=== PATIENT | female | born 1935 | race African-American/Black ===

== ENCOUNTER 2017-06-06 15:49 | Outpatient (CLI) | payer MEDICARE, MEDICAID ==
[2017-06-06 16:25] LABS: ALT (SGPT) 18 U/L (8-55); AST (SGOT) 18 U/L (5-34); Alkaline Phosphatase 102 U/L (40-150); Anion Gap 12 mmol/L (10-20); BUN (Urea Nitrogen) 23 mg/dL (9.8-20.1); Bilirubin, Total 0.2 mg/dL (0.2-1.2); Calc. Creatinine Clearance 0 mL/min (70-130); Calcium 9.8 mg/dL (7.8-10.44); Carbon Dioxide 31 mmol/L (23-31); Chloride 105 mmol/L (98-107); Estimated GFR-MDRD 39; Globulin 3.7 g/dL (2.4-3.5); Protein, Total 7.3 g/dL (6.0-8.3)
[2017-06-06 17:00] LABS: #Basophils 0.1 thou/uL (0.0-0.2); #Eosinphils 0.2 thou/uL (0.0-0.7); #Lymphocytes 2.7 thou/uL (1.20-3.40); #Monocytes 0.7 thou/uL (0.11-0.59); #Neutrophils 2.7 thou/uL (1.40-6.50); %Basophils 1.4 % (0.0-1.0); %Lymphocytes 42.1 % (21.0-51.0); Hematocrit 39.7 % (36.0-47.0); Mean Platelet Volume 7.1 fL (7.4-10.4); Red Blood Cell (RBC) Count 3.96 mill/uL (4.20-5.40); White Blood Cell (WBC) Count 6.3 thou/uL (4.8-10.8)
--- NOTE | 2017-06-06 19:12 | RAD ---
THREE VIEWS OF THE LEFT SHOULDER: 06/06/17 INDICATION: Left shoulder pain. FINDINGS: There is elevation of the left hemidiaphragm with mild left basilar atelectasis. There is mild AC garth int osteoarthrosis. IMPRESSION: Mild left AC joint osteoarthrosis. Stable to the prior exam. Stable elevation of the left hemidiaphragm. POS: [facility]
--- NOTE | 2017-06-06 19:17 | RAD ---
THREE VIEWS OF THE RIGHT SHOULDER: 06/06/17 INDICATION: Right shoulder pain. FINDINGS: There is mild osteoarthrosis of the right AC joint which is stable to a comparison dated 07/20/16. N o acute fracture or subluxation is evident. The visualized right lung is clear. IMPRESSION: Stable mild AC joint osteoarthrosis. POS: [facility]
== END 2017-06-06 15:50 | disposition home or self-care (01) ==
LOC: SCSRAD 15:49
PROVIDERS: ATTEND Internal Medicine Rheumatology
DX: M25.511 Pain in right shoulder (principal); M25.512 Pain in left shoulder; M19.011 Primary osteoarthritis, right shoulder; M19.012 Primary osteoarthritis, left shoulder
CPT/HCPCS: 36415; 80053; 82306; 85025; 85652; 86235

== ENCOUNTER 2018-06-17 10:29 | Observation (INO) | payer MEDICARE, MEDICAID ==
[2018-06-17] MEDS ORDERED: Acetaminophen 500 MG TAB ONE (11:10)
[2018-06-17 11:44] LABS: INR-International Normal Ratio 1.1; PTT 26.2 SEC (22.9-36.1); Prothrombin Time 14.1 SEC (12.0-14.7)
[2018-06-17 11:51] LABS: #Basophils 0.2 thou/uL (0.0-0.2); #Eosinphils 0.1 thou/uL (0.0-0.7); #Monocytes 0.7 thou/uL (0.11-0.59); #Neutrophils 3.3 thou/uL (1.40-6.50); %Basophils 2.6 % (0.0-1.0); %Eosinophils 2.2 % (0.0-10.0); %Lymphocytes 32.3 % (21.0-51.0); %Monocytes 11.4 % (0.0-10.0); %Neutrophils 51.5 % (42.0-75.0); Hemoglobin 13.1 g/dL (12.0-16.0); Mean Corpuscular HGB CONC 31.9 g/dL (32.0-36.0); Mean Corpuscular Hemoglobin 29.8 pg (27.0-31.0); Mean Corpuscular Volume 93.4 fL (78.0-98.0); Mean Platelet Volume 8.6 fL (7.4-10.4); Platelet Count 160 thou/uL (130-400); RBC Distribution Width 15.3 % (11.5-14.5); Red Blood Cell (RBC) Count 4.39 mill/uL (4.20-5.40); White Blood Cell (WBC) Count 6.3 thou/uL (4.8-10.8)
[2018-06-17 11:54] LABS: ALT (SGPT) 17 U/L (8-55); AST (SGOT) 17 U/L (5-34); Albumin 3.6 g/dL (3.4-4.8); Alkaline Phosphatase 86 U/L (40-150); Anion Gap 14 mmol/L (10-20); BUN (Urea Nitrogen) 16 mg/dL (9.8-20.1); Bilirubin, Total 0.2 mg/dL (0.2-1.2); CK (CPK) 95 U/L (29-168); Calc. Creatinine Clearance 0 mL/min (70-130); Carbon Dioxide 29 mmol/L (23-31); Chloride 101 mmol/L (98-107); Estimated GFR-MDRD 43; Globulin 3.4 g/dL (2.4-3.5); Glucose 203 mg/dL (83-110); Potassium 4.4 mmol/L (3.5-5.1); Sodium 140 mmol/L (136-145)
[2018-06-17 11:55] LABS: Troponin I Less than 0.010 ng/mL (< 0.028)
[2018-06-17 12:17] LABS: Bilirubin Negative (Negative); Blood, Urine Negative (Negative); Clarity Clear (Clear); Glucose, Urine (Dipstick) Negative (Negative); Leukocyte Negative (Negative); Nitrite Negative (Negative); Protein, Urine (Dipstick) Negative (Neg-Trace); Specific Gravity, Urine 1.025 (1.005-1.030); Urobilinogen 0.2 mg/dL (0.2-1.0)
[2018-06-17] MEDS ORDERED: Nitroglycerin 2% Ointment 1 INCH/1 GM Packet ONE (13:25)
--- NOTE | 2018-06-17 14:19 | CT ---
CT ANGIOGRAM OF THE THORACIC AND ABDOMINAL AORTA: HISTORY: Extremity pain. Decreased pulses. Evaluate for dissection. COMPARISON: None. TECHNIQUE: CT angiogram of the thoracic and abdominal aorta is performed in the axial plane. Three-dimensional reformatted images are submitted for interpretation. FINDINGS: CHEST CT: No mediastinal mass, lymphadenopathy, or hematoma. Heart size is within normal limits. No pericardi al effusion. There are coronary artery calcifications. Trachea and central bronchi are patent. There are patchy ground-glass opacities involving the right upper lobe, right lower lobe. No masses or consolidation in the right lung. No significant pleural fluid or pneumothorax in the right lung. There is marked elevation of the left hemidiaphragm likely due to left lower lobe atelectasis. Adequate aeration of the left upper lobe. No obvious masses or consolidation. No left-sided pleural effusion or pneumothorax. CT ABDOMEN: There is appropriate arterial phase enhancement of the liver, spleen, pancreas, and adrenal glands. No gastrohepatic, retrocrural, or periportal lymphadenopathy. Umbilical hernia containing mesenteric fat. No mesenteric mass, lymphadenopathy, free air, or free fluid. Symmetric attenuation of the psoas muscles. Limited evaluation of the alimentary canal due to the lack of oral contrast. Gastric mucosa, duodenu m, and multiple normal-caliber small bowel loops are noted. Ileocecal junction is normal. The visua lized colon demonstrates fecal material. There is evidence of diverticulosis without evidence of div erticulitis. Normal caliber appendix is identified. CT ANGIOGRAM: There is calcified plaque involving the origin of the right innominate artery, left carotid artery, a nd left subclavian artery. The ascending thoracic aorta demonstrates calcification of the proximal a ortic just superficial to the aortic valve. There is atherosclerosis of the aortic arch. Patchy ath erosclerosis of the descending thoracic aorta and abdominal aorta. There is no evidence of aneurysm or dissection with regards to the thoracic aorta. At the level of the celiac artery, there is abrupt decrease in the overall amount of enhancement involving the remainder of the abdominal aorta, aortic bifurcation, and both iliac arteries. Findings may be due to poor contrast opacification secondary to timing of bolus. There is significant atherosclerotic disease. However, there does not appear to be high-grade stenosis of the majority of the visualized aorta with the exception of the distal aort a just proximal to the bifurcation. Both visualized common iliac arteries are grossly patent. Based on the images provided, the celiac artery origin, superior mesenteric artery origin, and bilateral r enal artery origins are patent without evidence of high-grade stenosis. There are no lytic or blastic lesions in the osseous structures. There is S-shaped scoliotic curvatu re of the thoracic and lumbar spine. Marked vacuum disk phenomenon at L5-S1. There appears to be po stsurgical change with fusion throughout the majority of the lumbar spine. There is an incompletely evaluated hypodensity in the right iliac wing which has an attenuation coefficient of 1 Hounsfield un it. IMPRESSION: 1. Limited evaluation of the majority of the abdominal aorta as well as the intraabdominal arterial system due to poor timing of bolus. No gross evidence of high-grade stenosis of the majority of the aorta. If there is still concern, conventional angiography can be performed. 2. Elevation of the left hemidiaphragm. 3. Elevation of the left hemidiaphragm which is presumed to be due to left lower lobe atelectasis. 4. Diverticulosis, without evidence of diverticulitis. 5. Scoliosis of the lumbar spine. Vacuum disk phenomenon at L5-S1. Postsurgical changes are noted throughout the lumbar spine. 6. Incompletely evaluated hypodensities in the right iliac wing. POS: [facility]
[2018-06-17 16:16] VITALS: BMI 29.2
[2018-06-17] MEDS ORDERED: Ondansetron ODT 4 MG TAB SL PRN (16:20)
[2018-06-17] MEDS ORDERED: Acetaminophen 325 MG TAB PO PRN ×2 (16:20→16:37)
[2018-06-17] MEDS ORDERED: HYDROcodone/Acetaminophen 5/325 mg Tablet PO PRN ×4 (16:20→16:37)
[2018-06-17] MEDS ORDERED: Ondansetron HCl/PF 4 MG/2 ML Vial IVP PRN (16:20)
[2018-06-17] MEDS ORDERED: Acetaminophen 650 MG Suppository PR PRN (16:37)
[2018-06-17] MEDS ORDERED: Enoxaparin Sodium 30 MG/0.3 ML SYRINGE SC SCH (16:37)
--- NOTE | 2018-06-17 17:53 | HP ---
PRIMARY CARE PHYSICIAN: Nabil Montalvo M.D. DATE OF ADMISSION: 06/17/2018 TIME OF SERVICE: 16:45. CHIEF COMPLAINT: Left shoulder and right leg pain. HISTORY OF PRESENT ILLNESS: Ms. Perez is an 83-year-old -F[place]ian female with multiple medi simone problems including diabetes, hypertension, anxiety, peripheral vascular disease, and glaucoma. S he presented to the emergency department today after she woke up complaining of left upper arm pain f rom the shoulder to the mid humerus area that she normally does not have but has had in the past. Sh ned was also moving her right leg extremely slowly. She does have a history of having a stent to that leg back in November of this year. Her daughter was concerned and had her brought to the emergency depa rtment. There they gave her four baby aspirin and they worked up for acute coronary syndrome. About 30 minut es after getting the aspirin, she was able to move her right leg freely. They surmised that there mu st be a blood flow problem and so they were transferred here for further workup and evaluation. Susan ent has no chest discomfort, no palpitations. She felt a little short of breath earlier this morning , but has not had any since then. No PND or orthopnea. She has had some increased right lower extremity swelling asymmetrically. She took some Lasix that s he gotten from her tools administrator, Dr. Mendez before and that they have gone down significantly. The daughter also relates the patient has been wheezing recently, but has been better since the Lasix as well. No fevers or chills. No cough or sputum production. No nausea, vomiting, diarrhea, const ipation, no other current complaints. The patient did have a fall one week ago. She was seen in the emergency department, had x-rays done that showed no evidence of any fractures. She fell onto her right side. PAST MEDICAL HISTORY: 1. Hypertension. 2. Diabetes mellitus type 2, controlled. 3. Hypertension, essential. 4. Glaucoma. 5. Peripheral vascular disease. 6. Carotid vascular disease. 7. Anxiety. PAST SURGICAL HISTORY: Includes right carotid stent in June 2017, right leg stent November 2017, ri ght total hip replacement several years ago. HOME MEDICATIONS: 1. Xanax 0.25 mg p.o. b.i.d. 2. Aspirin 81 mg daily. 3. Atorvastatin 20 mg p.o. at bedtime. 4. Gabapentin 300 mg p.o. daily. 5. Lisinopril 20 mg daily. 6. Plavix 75 mg daily. 7. Potassium chloride 20 mEq daily. 8. Acarbose 100 mg t.i.d. 9. Coenzyme Q10 100 mg daily. 10. Glipizide 5 mg p.o. b.i.d. before meals. 11. Glucosamine/chondroitin 500/400 one capsule once a day. 12. Hydroxychloroquine 200 mg p.o. b.i.d. 13. Isosorbide mononitrate 60 mg once a day. 14. NovoLog 24 units subcu, there is no specified time. 15. Sertraline 100 mg p.o. daily. 16. Verapamil 180 mg 24-hour release. 17. Vitamin D3 2000 units daily. ALLERGIES: CODEINE. FAMILY HISTORY: Negative for clotting or bleeding disorders, no immune dysfunction, no premature cor onary artery disease. SOCIAL HISTORY: Negative for alcohol or drugs. She does occasionally smoke a cigarette during the d ay and has smoked for about 30 years. REVIEW OF SYSTEMS: All systems reviewed and negative except as stated as per HPI. PHYSICAL EXAMINATION: VITAL SIGNS: Temperature on arrival here is 97.6, pulse 62, blood pressure 135/68, respiratory rate 18, satting 95% on room air. GENERAL: She is awake. She is alert. She is oriented x3. She is an age appropriate appearing Afri can Fijian female, appears to be in no acute distress. She is pleasant and cooperative. HEENT: Normocephalic, atraumatic. Pupils equal, round, and reactive to light bilaterally. Mucous m embranes are moist. Lips are dry. NECK: Supple. There is no lymphadenopathy, JVD, or thyromegaly. She has normal carotid upstrokes. I do not appreciate bruits. Mucous membranes are moist. There are no visible lesions or thrush. LUNGS: Clear to auscultation bilaterally. She has good air movement. Symmetrical chest excursion. There are no wheezes, no rales, no rhonchi. CARDIOVASCULAR: She has normal S1 and S2. No S3 or S4. She has a regular rhythm and a normal rate. She does have a 2/6 systolic ejection murmur best heard at the apex. It does not radiate. ABDOMEN: Soft, it is nontender, slightly obese. She has no rebound, rigidity or guarding. She has normoactive bowel sounds present in all 4 quadrants. EXTREMITIES: No cyanosis. No clubbing. She has got trace pedal edema on the right more than the le ft. She has no pitting edema. MUSCULOSKELETAL: Normal to inspection. Large joints appear normal. She has adequate range of motio n. There is no evidence of palpable effusions or inflammation. NEUROLOGIC: Cranial nerves II-XII are grossly intact. She has no focal neurologic deficits and has a 4/5-5/5 strength in all 4 extremities and symmetrical. She has no focal deficits. Normal speech. LABORATORY DATA: CBC showed a white count of 6.3, hemoglobin 13.1, hematocrit 41.0, platelet count w as 160,000 with a normal differential. She has a slight monocytosis. Her chemistry showed a sodium 140, potassium 4.4, chloride 101, bicarbonate 29, BUN 16, creatinine 1.42, which is at her baseline w ith a GFR around 43. Glucose was 203 with calcium of 10.0. Lactic acid was normal at 1.8. Her live r functions were completely within normal limits. CK-MB was normal at 1.0 and troponin I was undetectable less than 0.010. Urinalysis was completely w ithin normal limits. ASSESSMENT AND PLAN: 1. Left shoulder pain. The patient has had multiple vascular risk factors of hypertension and diabe leandra. We will check morning fasting lipid profile. Get serial cardiac biomarkers. We will continue home medication including aspirin and Plavix. We will reevaluate. Watch on telemetry monitoring ove rnight. 2. Right lower extremity pain: The patient has no pain, feeling much better after the aspirin earlier today. Probably, this is arthritis. She has no evidence of any inflammation or edema at th is point. 3. Hypertension, continue home medications. 4. Diabetes mellitus type 2, continue home medications and diabetic diet. We will place her on low dose insulin sliding scale. We will try to clarify her insulin dosing from home. 5. Glaucoma. Continue home eyedrops. 6. Anxiety. We will continue Xanax. The patient will be placed in observation tonight and will get PT/OT evaluation for possible rehab pl acement.
[2018-06-17] MEDS: Sodium Chloride 0.9% 1,000 ML IV SCH (18:15)
[2018-06-18] MEDS ORDERED: Lisinopril/Hydrochlorothiazide 20/25 mg Tablet PO SCH (09:45)
[2018-06-18] MEDS: Sodium Chloride 0.9% 1,000 ML IV SCH (10:01)
[2018-06-18 11:30] LABS: Troponin I Less than 0.010 ng/mL (< 0.028)
[2018-06-18 11:59] VITALS: BP 166/74; TEMP 97.8
[2018-06-18] MEDS ORDERED: ACARBOSE 100 MG PO SCH (12:00)
--- NOTE | 2018-06-18 12:36 | DIS ---
DATE OF ADMISSION: 06/17/2018 DATE OF DISCHARGE: 06/18/2018 DISCHARGE DIAGNOSES: 1. Left shoulder pain, likely musculoskeletal, stable. 2. Right lower extremity pain secondary to arthritis with questionable component of peripheral vascular disease. 3. Peripheral vascular disease, chronic and stable. 4. Hypertension, stable. 5. Diabetes mellitus type 2, insulin requiring. 6. Deconditioning. CONSULTATIONS: None. PERTINENT LABORATORY AND X-RAY FINDINGS: Creatinine 1.42. Estimated GFR of 43 , lactic acid level 1.8, calcium 10.0. LFTs within normal limits. Troponin I negative x2. CBC showed a white blood cell count of 6.3, hemoglobin 13, hematocrit 41, platelet count 160 with 52% neutrophils. Urinalysis negative. Blood cultures x2 dated 06/17/[address] of the chest with dissection protocol dated 06/17/2018 showed no gross evidence of high grade stenosis of the majority of the aorta. Limited exam due to timing of contrast. Chronic changes noted. Please see dictated report for full details. HOSPITAL COURSE: Patient was observed after presenting with left shoulder and right lower extremity pain. The patient underwent extensive evaluation including metabolic screening, CT imaging of the chest as well as telemetry monitoring with his workup essentially negative and unrevealing. The patient did receive aspirin 324 mg and was resumed on her regular outpatient medication regimen to include Plavix 75 mg daily. The patient's presentation likely multifactorial given osteoarthritis, deconditioning, and history of peripheral vascular disease. The patient was evaluated by Physical Therapy with recommendations to continue home physical therapy with home health services after discharge. Telemetry monitoring shows sinus mechanism without evidence of acute arrhythmia or dysrhythmia. The patient overall clinically stable throughout the hospital course, tolerating regular oral intake, and voiding appropriately. I have examined the patient at the time of discharge and discussed followup instructions with the patient and her daughter. Family verbalized understanding and in agreement and ready for discharge on 06/18/2018. DISCHARGE MEDICATIONS: 1. Acarbose 100 mg p.o. t.i.d. 2. Xanax 0.25 mg p.o. b.i.d. 3. Enteric-coated aspirin 81 mg p.o. daily. 4. Lipitor 20 mg p.o. at bedtime. 5. Simbrinza 1%/0.2% ophthalmic suspension 1 drop to left eye b.i.d. 6. Vitamin D3 2000 units p.o. daily. 7. Plavix 75 mg p.o. daily. 8. Gabapentin 300 mg p.o. daily. 9. Glipizide 5 mg p.o. b.i.d. 10. Glucosamine 1 tablet p.o. daily. 11. Hydroxychloroquine sulfate 200 mg p.o. b.i.d. 12. Imdur 60 mg p.o. daily. 13. Latanoprost 0.05% 1 drop to left eye daily. 14. Levemir 34 units subcutaneously at bedtime. 15. Lisinopril/HCTZ 20/25 mg 1 tab p.o. daily. 16. Potassium chloride 20 mEq p.o. daily. 17. Zoloft 100 mg p.o. daily. 18. Timolol maleate 1 drop to left eye b.i.d. 19. Coenzyme Q10 100 mg p.o. daily. 20. Verapamil extended release 180 mg p.o. daily. FOLLOWUP: The patient to follow up with Dr. Nabil Montalvo within 7 days of discharge. The patient will follow up with Dr. Mendez and to call his office for appointment time and date. CONDITION ON DISCHARGE: Stable. ACTIVITY: Ad chayo. Rolling walker for ambulation. SPECIAL INSTRUCTIONS: Resume home health services including physical therapy 3 times per week. DIET: ADA and heart healthy. CODE STATUS: Full. DISPOSITION: Home with [facility], 06/18/2018. TONYA
[2018-06-18 14:18] LABS: Troponin I Less than 0.010 ng/mL (< 0.028)
[2018-06-18] MEDS ORDERED: Timolol 0.5% Ophth Soln 5 ml Bottle L EYE SCH (21:00)
[2018-06-18] MEDS ORDERED: Hydroxychloroquine Sulfate 200 MG TAB PO SCH (21:00)
[2018-06-18] MEDS ORDERED: Atorvastatin Calcium 20 MG TAB PO SCH (21:00)
[2018-06-18] MEDS ORDERED: INSULIN DETEMIR SC SCH (21:00)
[2018-06-18] MEDS ORDERED: Brinzolamide 1% Ophth Soln 10 ml Bottle L EYE SCH (21:00)
[2018-06-18] MEDS ORDERED: Non-Formulary Item 1 EACH (Brinzolamide/Brimonidine Tart [Simbrinza 1%/0.2% Ophth Susp] 1 L EYE SCH (21:00)
[2018-06-18] MEDS ORDERED: Brimonidine Tartrate 0.2% Ophth Soln 5 ml Bottle L EYE SCH (21:00)
[2018-06-18] MEDS ORDERED: ALPRAZolam 0.25 MG TAB PO SCH (21:00)
[2018-06-18] MEDS ORDERED: glipiZIDE 5 MG TAB PO SCH (21:00)
[2018-06-18] MEDS ORDERED: Insulin Glargine 34 UNITS in Pre-Filled Syringe 1 EACH SC SCH (21:00)
[2018-06-19] MEDS ORDERED: Gabapentin 300 MG CAP PO SCH (09:00)
[2018-06-19] MEDS ORDERED: Clopidogrel Bisulfate 75 MG TAB PO SCH (09:00)
[2018-06-19] MEDS ORDERED: Potassium Chloride 20 MEQ TAB PO SCH (09:00)
[2018-06-19] MEDS ORDERED: Ubidecarenone 50 MG CAP PO SCH (09:00)
[2018-06-19] MEDS ORDERED: Latanoprost 0.005% Ophth Soln 2.5 ml Bottle L EYE SCH (09:00)
[2018-06-19] MEDS ORDERED: Non-Formulary Item 1 EACH (Cholecalciferol (Vitamin D3) [Vitamin D3] 2,000 UNIT) PO SCH (09:00)
[2018-06-19] MEDS ORDERED: Lisinopril/Hydrochlorothiazide 20/25 mg Tablet PO SCH (09:00)
== END 2018-06-18 13:53 | disposition home or self-care (01) ==
LOC: SCSER 10:29 → 2NO 16:00
PROVIDERS: ADMIT Internal Medicine; ATTEND Internal Medicine
DX: M25.512 Pain in left shoulder (principal); M19.90 Unspecified osteoarthritis, unspecified site; I73.9 Peripheral vascular disease, unspecified; I10 Essential (primary) hypertension; E11.9 Type 2 diabetes mellitus without complications; Z79.02 Long term (current) use of antithrombotics/antiplatelets; Z79.899 Other long term (current) drug therapy; Z79.4 Long term (current) use of insulin; Z88.5 Allergy status to narcotic agent
CPT/HCPCS: 51701; 71275; 80053; 81003; 82550; 82553; 82962 ×2; 83605; 84484 ×3; 85025; 85610; 85730; 87040; 87086; 90662; 93005; 96372; 97139; 97530 ×2; 99285; G0008; G0378; G8978; G8979; G8987; G8988; 36415; 36416; 90471; A4353; J1650

== ENCOUNTER 2018-06-19 09:53 | Observation (INO) | payer MEDICARE, MEDICAID ==
[2018-06-19 10:56] LABS: #Basophils 0.1 thou/uL (0.0-0.2); #Eosinphils 0.1 thou/uL (0.0-0.7); #Lymphocytes 0.6 thou/uL (1.20-3.40); #Monocytes 0.6 thou/uL (0.11-0.59); #Neutrophils 4.6 thou/uL (1.40-6.50); %Basophils 0.9 % (0.0-1.0); %Lymphocytes 9.4 % (21.0-51.0); %Monocytes 9.8 % (0.0-10.0); %Neutrophils 77.9 % (42.0-75.0); Hemoglobin 12.5 g/dL (12.0-16.0); Mean Corpuscular HGB CONC 31.6 g/dL (32.0-36.0); Mean Corpuscular Hemoglobin 29.5 pg (27.0-31.0); Mean Corpuscular Volume 93.3 fL (78.0-98.0); Mean Platelet Volume 7.2 fL (7.4-10.4); Platelet Count 142 thou/uL (130-400); RBC Distribution Width 15.2 % (11.5-14.5); Red Blood Cell (RBC) Count 4.25 mill/uL (4.20-5.40); White Blood Cell (WBC) Count 5.9 thou/uL (4.8-10.8)
[2018-06-19 11:06] LABS: ALT (SGPT) 14 U/L (8-55); AST (SGOT) 15 U/L (5-34); Albumin 3.5 g/dL (3.4-4.8); Alkaline Phosphatase 76 U/L (40-150); Anion Gap 13 mmol/L (10-20); BUN (Urea Nitrogen) 12 mg/dL (9.8-20.1); Bilirubin, Total 0.2 mg/dL (0.2-1.2); Calc. Creatinine Clearance 0 mL/min (70-130); Calcium 9.4 mg/dL (7.8-10.44); Carbon Dioxide 28 mmol/L (23-31); Chloride 102 mmol/L (98-107); Estimated GFR-MDRD 48; Globulin 3.4 g/dL (2.4-3.5); Glucose 186 mg/dL (83-110); Potassium 3.8 mmol/L (3.5-5.1); Protein, Total 6.9 g/dL (6.0-8.3); Sodium 139 mmol/L (136-145)
[2018-06-19 11:09] LABS: CKMB 0.9 ng/mL (0-6.6)
[2018-06-19 11:51] LABS: Bilirubin Negative (Negative); Blood, Urine Trace (Negative); Clarity Slightly Cloudy (Clear); Glucose, Urine (Dipstick) Negative (Negative); Leukocyte Small (Negative); Nitrite Positive (Negative); Protein, Urine (Dipstick) Negative (Neg-Trace); Urobilinogen 0.2 mg/dL (0.2-1.0); pH, Urine 6.5 (5.0-9.0)
[2018-06-19 11:56] LABS: Bacteria/HPF 4+ HPF (None Seen); Hyaline Casts/LPF NONE SEEN LPF (0-3 Hyaline); RBC/HPF 0-3 HPF (0-3); Squamous Epithelial 0-3 HPF (0-3); WBC/HPF 0-3 HPF (0-3)
[2018-06-19] MEDS ORDERED: cefTRIAXone\\ROCEPHIN 1 GM VIAL ONE (11:59)
--- NOTE | 2018-06-19 12:01 | RAD ---
PORTABLE CHEST: Date: 06/19/18 INDICATION: Fever. No comparison chest films; however, comparison made to a chest CT of 06/17/18. FINDINGS: There is elevated left hemidiaphragm suggesting left diaphragmatic paralysis. The prior CT demonstrat ed left basilar atelectasis associated with this elevated diaphragm. Heart size is mildly prominent with mild vascular engorgement. IMPRESSION: Elevated left hemidiaphragm with left basilar atelectasis, similar in appearance to the CT of 8. POS: [facility]
--- NOTE | 2018-06-19 12:08 | CT ---
CT HEAD WITHOUT CONTRAST: Date: 06/19/18 Multiple axial tomograms obtained through the head without IV enhancement. INDICATION: Mental status change. FINDINGS: There is ventriculomegaly, which appears slightly more prominent today than on the prior study. Mild chronic ischemic white matter change. No evidence of mass, edema, or acute infarct. Sinuses and masto ids are well aerated. IMPRESSION: Ventriculomegaly and mild chronic ischemic white matter change. Consider NPH and recommend clinical c orrelation. POS: [facility]
[2018-06-19 13:03] VITALS: BMI 26.6
[2018-06-19] MEDS ORDERED: Ondansetron PF 4 MG/2 ML Vial IVP PRN ×2 (13:36→16:59)
[2018-06-19] MEDS ORDERED: Ondansetron ODT 4 MG TAB PO PRN ×2 (13:37→16:59)
[2018-06-19] MEDS ORDERED: Acetaminophen 325 MG TAB PO PRN (13:37)
[2018-06-19] MEDS ORDERED: Piperacillin/Tazobactam 4.5 GM in Sodium Chloride 0.9% 100 ML IVPB SCH (13:45)
[2018-06-19] MEDS ORDERED: Acetaminophen 500 MG TAB PO PRN (16:59)
[2018-06-19] MEDS ORDERED: Dextrose 5% in Water 1,000 ML IV PRN (16:59)
[2018-06-19] MEDS ORDERED: Ibuprofen 200 MG TAB PO PRN (16:59)
[2018-06-19] MEDS ORDERED: Dextrose 50% Abboject 50 ML SYRINGE SLOW IVP PRN (16:59)
[2018-06-19] MEDS ORDERED: hydrALAZINE 20 MG/ML VIAL SLOW IVP PRN (16:59)
[2018-06-19] MEDS ORDERED: HumaLOG 300 UNITS/3 ML VIAL SC PRN ×2 (16:59)
[2018-06-19] MEDS ORDERED: Dextrose 50% Abboject 50 ML SYRINGE ONE (17:16)
[2018-06-19] MEDS: Sodium Chloride 0.9% 1,000 ML IV SCH (18:14)
[2018-06-19] MEDS ORDERED: BRINZOLAMIDE L EYE SCH (21:00)
[2018-06-19] MEDS ORDERED: glipiZIDE 5 MG TAB PO SCH (21:00)
[2018-06-19] MEDS ORDERED: BRIMONIDINE TART L EYE SCH (21:00)
[2018-06-19] MEDS: ALPRAZolam 0.25 MG TAB PO SCH (21:09)
[2018-06-19] MEDS: Atorvastatin Calcium 20 MG TAB PO SCH (21:09)
[2018-06-19] MEDS: Timolol 0.5% Ophth Soln 5 ml Bottle L EYE SCH (21:09)
[2018-06-19] MEDS: Famotidine 20 MG TAB PO SCH (21:10)
[2018-06-19] MEDS: Hydroxychloroquine Sulfate 200 MG TAB PO SCH (21:11)
[2018-06-19] MEDS: Gabapentin 300 MG CAP PO SCH (21:11)
--- NOTE | 2018-06-19 22:47 | HP ---
DATE OF ADMISSION: 06/19/2018 PRIMARY CARE PHYSICIAN: Nabil Montalvo M.D. CHIEF COMPLAINT: General weakness and confusion. HISTORY OF PRESENT ILLNESS: This is an 83-year-old -Thai female who presents to [facility] Emergency Department initially with family complaining of general weakness that they noted when patient attempted to stand up and go to the restroom. The patient was also noted to be confuse d regarding drinking from a water bottle and thinking that her teeth were in the water bottle. The p sathish was notably admitted to [facility] from 06/17/2018 to 06/18/2018 for nonspecific comp laints of left upper and right lower extremity pain. The patient underwent extensive evaluation incl uding cardiac rule out with negative findings. The patient was discharged home when daughter reports the patient was acting confused in the residential advisor hours of 06/19/2018. No specific history of na usea, vomiting, or diarrhea. The patient was evaluated in the emergency room and noted to have a tem perature of 100.3 degrees Fahrenheit. Screening urinalysis was suspicious for infectious process and patient received IV fluids as well as IV Rocephin and Zosyn. The patient was referred to the Hospit alist Service for further evaluation. PAST MEDICAL HISTORY: 1. Diabetes mellitus type 2. 2. Hypertension. 3. Peripheral vascular disease. 4. History of glaucoma. 5. Carotid artery disease. 6. Anxiety disorder. 7. Hyperlipidemia. PAST SURGICAL HISTORY: 1. Status post right lower extremity stent placement in 11/2017. 2. Status post right total hip arthroplasty. 3. Status post right carotid endarterectomy with stent in 06/2017. CURRENT MEDICATIONS: 1. Xanax 0.25 mg p.o. b.i.d. 2. Aspirin 81 mg p.o. daily. 3. Lipitor 20 mg p.o. at bedtime. 4. Gabapentin 300 mg p.o. daily. 5. Lisinopril 20 mg p.o. daily. 6. Plavix 75 mg p.o. daily. 7. Potassium chloride 20 mEq p.o. daily. 8. Acarbose 100 mg p.o. t.i.d. 9. Coenzyme Q10 of 100 mg p.o. daily. 10. Glipizide 5 mg p.o. b.i.d. 11. Glucosamine/chondroitin 500/400 mg 1 capsule p.o. daily. 12. Hydroxychloroquine 200 mg p.o. b.i.d. 13. Isosorbide mononitrate 60 mg p.o. daily. 14. Novolog 24 units subcutaneously. 15. Sertraline 100 mg p.o. daily. 16. Verapamil 180 mg p.o. daily. 17. Vitamin D3 of 2000 units p.o. daily. ALLERGIES: CODEINE and TRAMADOL. FAMILY HISTORY: No inheritable diseases. SOCIAL HISTORY: The patient resides with her daughter in [facility]. Note, occasional [employer] garette use. No alcohol or illicit drug use. Ambulatory with use of a rolling walker. REVIEW OF SYSTEMS: The following complete review of systems was negative, unless otherwise mentioned in the HPI or below: Constitutional: Weight loss or gain, ability to conduct usual activities. Ski n: Rash, itching. Eyes: Double vision, pain. ENT/Mouth: Nose bleeding, neck stiffness, pain, tend erness. Cardiovascular: Palpitations, dyspnea on exertion, orthopnea. Respiratory: Shortness of b reath, wheezing, cough, hemoptysis, fever or night sweats. Gastrointestinal: Poor appetite, abdomin al pain, heartburn, nausea, vomiting, constipation, or diarrhea. Genitourinary: Urgency, frequency, dysuria, nocturia. Musculoskeletal: Pain, swelling. Neurologic/Psychiatric: Anxiety, depression. Allergy/Immunologic: Skin rash, bleeding tendency. Otherwise negative except as stated per HPI. PHYSICAL EXAMINATION: VITAL SIGNS: Currently, blood pressure 111/69, pulse 74, respiratory rate 20, temperature 99.1 degre es Fahrenheit, O2 saturation 98% on room air. GENERAL APPEARANCE: This is an 83-year-old -Thai female, lethargic, in no acute distress. HEENT: Pupils are equal, round, and reactive to light and accommodation. Extraocular muscles are in tact. No scleral icterus, no conjunctival injection. Nares patent. OP is clear. Oral mucosa dry a ppearing. NECK: Supple, no cervical adenopathy, no thyromegaly, no carotid bruits, no JVD appreciated. Cervic al spine with full active and passive range of motion. No meningeal signs noted. CHEST: Lungs are clear to auscultation bilaterally. CARDIOVASCULAR: S1, S2, without noted murmur, rub or gallop. ABDOMEN: Rounded, soft, nontender, nondistended. Bowel sounds are positive in all four quadrants. There is no hepatosplenomegaly, no abdominal bruits, no rebound or guarding appreciated. EXTREMITIES: Warm and dry with fair turgor. No clubbing, cyanosis or asymmetric edema appreciated. Pulses palpable distally at the dorsalis pedis, posterior tibial, and popliteal arteries bilaterally . Capillary refill less than 2 seconds. NEUROLOGIC: Lethargic, minimally responsive to name. Not observed ambulatory during this exam. PERTINENT LABORATORY AND X-RAY FINDINGS: Sodium 139, potassium 3.8, chloride 102, CO2 of 28, BUN 12, creatinine 1.28, estimated GFR of 48, glucose 186. Lactic acid of 1.9, calcium 9.4. LFTs within no rmal limits. Troponin I negative x1. CBC showed a white blood cell count of 5.9, hemoglobin 12.5, h ematocrit 39.6, platelet count 142 with 78% neutrophils. Urinalysis positive for nitrite and small l eukocyte esterase with 4+ bacteria. Urine culture dated 06/17/2018 showed no growth at [address] of the brain without contrast dated 06/19/2018 showed mild chronic ischemic white matter changes, no acute process noted. Portable chest x-ray dated 06/19/2018 by my interpretation shows elevated left hemidiaphragm with left basilar atelectasis. EKG dated 06/19/2018 by my interpretation shows sinus mechanism with heart rates in the 80s. Attenuated R waves noted in the precordial leads. Left axis deviation noted. ASSESSMENT AND PLAN: 1. Urinary tract infection. The patient will be observed on the medical floor. We will continue Ro cephin 2 grams IV q.24 hours. Urine culture pending. Continue IV fluids at 75 mL per hour. 2. Acute metabolic encephalopathy. Suspect secondarily to #1. Continue general supportive manageme nt as outlined in #1 and monitor clinical response. 3. Generalized weakness. Secondarily to urinary tract infection and acute metabolic encephalopathy. 4. PT evaluation for functional assessment in the a.m. 5. Chronic kidney disease stage 3. Avoid nephrotoxic agents and contrast media. Continue IV fluids as outlined previously. Repeat creatinine in the a.m. 6. Diabetes mellitus type 2. Resume home insulin regimen once confirmed. Insulin sliding scale for reflexive coverage. ADA diet. 7. Prophylaxis. Sequential compression devices while in bed. Pepcid 20 mg p.o. b.i.d. 8. Code status is FULL. Surrogate medical decision maker is the patient's daughter.
[2018-06-20] MEDS: Sodium Chloride 0.9% 1,000 ML IV SCH ×2 (01:58→16:32)
[2018-06-20 05:06] LABS: Eosinophils 3 % (0-10); Hemoglobin 12.4 g/dL (12.0-16.0); Lymphocytes 17 % (21-51); MDiff Complete? YES; Mean Corpuscular Hemoglobin 30.5 pg (27.0-31.0); Mean Corpuscular Volume 95.3 fL (78.0-98.0); Mean Platelet Volume 7.3 fL (7.4-10.4); Monocytes 16 % (0-10); Neutrophil 64 % (42-75); PLT Morphology Comment Appears Adequate; Platelet Count 158 thou/uL (130-400); RBC Distribution Width 15.1 % (11.5-14.5); RBC Morphology Normal; Red Blood Cell (RBC) Count 4.06 mill/uL (4.20-5.40); White Blood Cell (WBC) Count 5.4 thou/uL (4.8-10.8)
[2018-06-20 05:12] LABS: Anion Gap 10 mmol/L (10-20); BUN (Urea Nitrogen) 11 mg/dL (9.8-20.1); Calc. Creatinine Clearance 51 mL/min (70-130); Calcium 8.8 mg/dL (7.8-10.44); Carbon Dioxide 27 mmol/L (23-31); Chloride 105 mmol/L (98-107); Estimated GFR-MDRD 63; Glucose 82 mg/dL (83-110); Potassium 3.6 mmol/L (3.5-5.1); Sodium 138 mmol/L (136-145)
[2018-06-20] MEDS: glipiZIDE 5 MG TAB PO SCH ×2 (08:54→16:24)
[2018-06-20] MEDS: Potassium Chloride 20 MEQ TAB PO SCH (08:54)
[2018-06-20] MEDS: ALPRAZolam 0.25 MG TAB PO SCH ×3 (08:55→21:24)
[2018-06-20] MEDS: Clopidogrel Bisulfate 75 MG TAB PO SCH (08:55)
[2018-06-20] MEDS: Saccharomyces boulardii 250 MG CAP PO SCH (08:55)
[2018-06-20] MEDS: Insulin Glargine 34 UNITS in Pre-Filled Syringe 1 EACH SC SCH (08:56)
[2018-06-20] MEDS: Gabapentin 300 MG CAP PO SCH ×3 (08:56→21:23)
[2018-06-20] MEDS: Timolol 0.5% Ophth Soln 5 ml Bottle L EYE SCH ×2 (08:57→21:23)
[2018-06-20] MEDS: Ubidecarenone 50 MG CAP PO SCH (08:58)
[2018-06-20] MEDS ORDERED: BORON PO SCH (09:00)
[2018-06-20] MEDS ORDERED: GLUCOSAM PO SCH (09:00)
[2018-06-20] MEDS ORDERED: [UNRECOGNIZED DRUG - OTHER] PO SCH (09:00)
[2018-06-20] MEDS ORDERED: MSM PO SCH (09:00)
[2018-06-20] MEDS ORDERED: cefTRIAXone\\ROCEPHIN 2 GM in Sodium Chloride 0.9% 100 ML IVPB SCH (09:00)
[2018-06-20] MEDS ORDERED: INSULIN DETEMIR SC SCH (09:00)
[2018-06-20] MEDS ORDERED: CHOND PO SCH (09:00)
[2018-06-20] MEDS: Verapamil SR 120 MG TAB PO SCH (10:03)
[2018-06-20] MEDS: Hydroxychloroquine Sulfate 200 MG TAB PO SCH ×2 (10:04→21:23)
[2018-06-20] MEDS: Latanoprost 0.005% Ophth Soln 2.5 ml Bottle L EYE SCH (10:07)
[2018-06-20] MEDS: Famotidine 20 MG TAB PO SCH ×2 (10:07→21:23)
--- NOTE | 2018-06-20 15:21 | PDOC.PN ---
- Subjective Encounter Start Date: 06/20/18 Encounter Start Time: 15:05 Subjective: f/u for UTI with Staph spp on current Rocephin. More alert, walked -: short distance with PT. Voiding regularly. Appetite improved. - Objective Resuscitation Status: Resuscitation Status FULL:Full Resuscitation MAR Reviewed: Yes Vital Signs & Weight: Vital Signs (12 hours) Temp Pulse Resp BP BP Pulse Ox 06/20/18 12:39 98.9 F 66 16 120/67 97 06/20/18 08:57 73 149/65 H 06/20/18 08:00 96 06/20/18 07:45 98.9 F 73 18 149/65 H 96 06/20/18 04:13 98.0 F 73 16 146/75 H 95 Weight Weight 165 lb 5.547 oz I&O: 06/19/18 06/20/18 06/21/18 06:59 06:59 06:59 Intake Total 1219 Output Total 250 Balance 969 Result Diagrams: 06/20/18 03:47 06/20/18 03:47 Additional Labs: Accuchecks 06/20/18 06/20/18 06/19/18 11:16 05:09 21:08 POC Glucose 240 H 79 265 H 06/19/18 06/19/18 18:24 17:14 POC Glucose 230 H 44 L* Microbiology 06/19/18 11:30 Urine Straight Catheter Urine Culture - Preliminary Coagulase Neg Staphylococcus 06/19/18 11:15 Venous blood - Left Arm Blood Culture - Preliminary Specimen has been received and culture in progress. No Growth to date. 06/19/18 10:42 Venous blood - Left Arm Blood Culture - Preliminary Specimen has been received and culture in progress. No Growth to date. Phys Exam - Physical Examination Constitutional: NAD HEENT: PERRLA, sclera anicteric, oral pharynx no lesions Neck: no nodes, no JVD, supple, full ROM Respiratory: no wheezing, no rales, no rhonchi, clear to auscultation bilateral S1, S2 Cardiovascular: RRR, no significant murmur, no rub, gallop Gastrointestinal: soft, non-tender, no distention, positive bowel sounds Musculoskeletal: no edema, pulses present Neurological: normal sensation, moves all 4 limbs Psychiatric: A&O x 3 Skin: normal turgor, cap refill <2 seconds Dx/Plan (1) UTI (urinary tract infection) Status: Acute Qualifiers: Urinary tract infection type: acute cystitis Comment: Staph spp initially, Rocephin currently, transition to Levquin 500mg daily (2) Acute metabolic encephalopathy Code(s): G93.41 - METABOLIC ENCEPHALOPATHY Status: Acute Comment: Improved, likely due to #1 (3) Generalized weakness Code(s): R53.1 - WEAKNESS Status: Acute Comment: Secondary to #1, PT for mobilization, home PT after d/c (4) CKD (chronic kidney disease), stage III Code(s): N18.3 - CHRONIC KIDNEY DISEASE, STAGE 3 (MODERATE) Status: Chronic Comment: Stable, avoid nephrotoxic meds and limit contrast exposure - Plan plan discussed w/ family, continue antibiotics, PT/OT, social media content manager, out of bed/ambulate, DVT proph w/SCDs Stable overall -: D/C Rocephin -: Start Levaquin 500mg po daily -: OOB with PT -: Continue IVF's another 24h * Likely home in am
[2018-06-20] MEDS: Atorvastatin Calcium 20 MG TAB PO SCH (21:23)
[2018-06-21] MEDS: Sodium Chloride 0.9% 1,000 ML IV SCH (05:08)
[2018-06-21] MEDS: Verapamil SR 120 MG TAB PO SCH (09:07)
[2018-06-21] MEDS: Saccharomyces boulardii 250 MG CAP PO SCH (09:07)
[2018-06-21] MEDS: Famotidine 20 MG TAB PO SCH (09:07)
[2018-06-21] MEDS: glipiZIDE 5 MG TAB PO SCH (09:08)
[2018-06-21] MEDS: ALPRAZolam 0.25 MG TAB PO SCH ×2 (09:08→15:09)
[2018-06-21] MEDS: Gabapentin 300 MG CAP PO SCH ×2 (09:09→15:09)
[2018-06-21] MEDS: Hydroxychloroquine Sulfate 200 MG TAB PO SCH (09:09)
[2018-06-21] MEDS: Ubidecarenone 50 MG CAP PO SCH (09:09)
[2018-06-21] MEDS: Potassium Chloride 20 MEQ TAB PO SCH (09:09)
[2018-06-21] MEDS: Clopidogrel Bisulfate 75 MG TAB PO SCH (09:09)
[2018-06-21] MEDS: Insulin Glargine 34 UNITS in Pre-Filled Syringe 1 EACH SC SCH (09:19)
[2018-06-21] MEDS: Latanoprost 0.005% Ophth Soln 2.5 ml Bottle L EYE SCH (09:23)
[2018-06-21] MEDS: Timolol 0.5% Ophth Soln 5 ml Bottle L EYE SCH (09:23)
--- NOTE | 2018-06-21 11:17 | DIS ---
DATE OF ADMISSION: 06/19/2018 DATE OF DISCHARGE: 06/21/2018 DISCHARGE DIAGNOSES: 1. Urinary tract infection with Staphylococcus species. 2. Acute metabolic encephalopathy secondary to #1, resolving. 3. Generalized weakness. 4. Chronic kidney disease, stage 3. 5. Hypertension, stable. 6. Diabetes mellitus, type 2, insulin-requiring. CONSULTATIONS: None. PERTINENT LABORATORY DATA AND X-RAY FINDINGS: Creatinine ranged between 1.02 to 1.28, estimated GFR ranging between 48 to 63. Lactic acid level 1.9. CBC showed a white blood cell count of 5.9, hemogl obin 12.5, hematocrit 40, platelet count 142. Blood cultures x2 dated 06/19/2018 showed no growth to date. Urine culture dated 06/19/2018 showed greater than 100,000 colonies of coagulase negative Sta phylococcus. Portable chest x-ray dated 06/19/2018 showed an elevated left hemidiaphragm with associ ated atelectasis. CT of the brain without contrast dated 06/19/2018 showed chronic ischemic white ma tter changes without acute process. HOSPITAL COURSE: Patient was observed on the medical floor after presenting with general weakness an d confusion with associated evidence of urinary tract infection. Patient was placed on IV Rocephin a fter concern for urinary tract infection as underlying etiology for current encephalopathy. Patient received general supportive management in conjunction with IV fluids and stabilized clinically in 24 hours. Urine culture did show evidence of coagulase negative Staphylococcus species at greater than 100,000 colonies. Patient transitioned to Levaquin 500 mg daily and will continue for 7-day course a fter discharge. Patient continued to receive physical therapy during her hospital stay with recommen dations for home health including physical therapy on discharge. I have examined the patient at the time of discharge and discussed followup instructions. Patient and family verbalized understanding a nd agreement and ready for discharge on 06/21/2018. DISCHARGE MEDICATIONS: 1. Levaquin 500 mg 1 tab p.o. daily x7 days. 2. Xanax 0.25 mg p.o. b.i.d. 3. Aspirin 81 mg p.o. daily. 4. Lipitor 20 mg p.o. at bedtime. 5. Gabapentin 300 mg p.o. daily. 6. Lisinopril 20 mg p.o. daily. 7. Plavix 75 mg 1 tab p.o. daily. 8. Potassium chloride 20 mEq p.o. daily. 9. Acarbose 100 mg p.o. t.i.d. 10. Coenzyme Q10 of 100 mg p.o. daily. 11. Glipizide 5 mg p.o. b.i.d. 12. Glucosamine/chondroitin 500/400 mg one capsule p.o. daily. 13. Hydroxychloroquine 200 mg p.o. b.i.d. 14. Isosorbide mononitrate 60 mg p.o. daily. 15. NovoLog 24 units subcutaneously daily. 16. Sertraline 100 mg p.o. daily. 17. Verapamil mg p.o. daily. 18. Vitamin D3 of 2000 units p.o. daily. FOLLOWUP: Patient to follow up with Dr. Nabil Montalvo within 7 days of discharge. SPECIAL INSTRUCTIONS: Recommend repeat urinalysis after completion of antibiotic therapy. DIET: Heart-healthy and ADA. ACTIVITY: Ad chayo. CODE STATUS: FULL. DISPOSITION: Home with home health services including physical therapy on 06/21/2018.
[2018-06-21] MEDS ORDERED: Metamucil PACK PO PRN (13:23)
[2018-06-21] MEDS ORDERED: Lisinopril/Hydrochlorothiazide 20/25 mg Tablet PO SCH (13:30)
[2018-06-21 13:37] VITALS: TEMP 98.3
[2018-06-21 17:45] VITALS: BP 119/68
[2018-06-22] MEDS ORDERED: Lisinopril/Hydrochlorothiazide 20/25 mg Tablet PO SCH (09:00)
== END 2018-06-21 17:57 | disposition home or self-care (01) ==
LOC: SCSER 09:53 → T4-A 12:54
PROVIDERS: ADMIT Family Medicine; ATTEND Family Medicine
DX: N39.0 Urinary tract infection, site not specified (principal); B95.8 Unspecified staphylococcus as the cause of diseases classified elsewhere; G93.41 Metabolic encephalopathy; E11.22 Type 2 diabetes mellitus with diabetic chronic kidney disease; E11.51 Type 2 diabetes mellitus with diabetic peripheral angiopathy without gangrene; I12.9 Hypertensive chronic kidney disease with stage 1 through stage 4 chronic kidney disease, or unspecified chronic kidney disease; F41.9 Anxiety disorder, unspecified; N18.3 Chronic kidney disease, stage 3 (moderate); Z79.52 Long term (current) use of systemic steroids; Z79.82 Long term (current) use of aspirin; Z79.899 Other long term (current) drug therapy; Z79.02 Long term (current) use of antithrombotics/antiplatelets; Z88.5 Allergy status to narcotic agent
CPT/HCPCS: 51701; 70450; 71045; 80048; 80053; 82553; 82962 ×3; 83605; 84484; 85007; 85025; 85027; 87040; 87077; 87086; 87186; 93005; 96361 ×3; 96365; 96366; 97116 ×2; 97139 ×2; 97530 ×2; 99285; G0378; G8978; G8979; 36415; 36416; 81003; 81015; A4353; J0696; J2543; J7050

== ENCOUNTER 2019-01-14 12:40 | Outpatient (CLI) | payer MEDICARE, MEDICAID ==
--- NOTE | 2019-01-14 13:13 | RAD ---
RADIOGRAPH CHEST 2 VIEW: DATE: 01/14/2019 TIME: 12:52 PM HISTORY: 84-year-old female with fever COMPARISON: 06/19/2018 FINDINGS: Chronically very elevated left hemidiaphragm. Diffusely prominent interstitial markings, especially r ight central lung. At right mid-upper lung zone medially hilum, there is an approximately 1.5 x 1 cm small focal nodular structure with slightly lucent center and thin halo and irregular margins. No pneumothorax. No consolidation visualized. No other potential change. IMPRESSION: 1. Questionable tiny lesion, perhaps cavitary, in right upper lobe, versus artifact. Consider chest C T. 2. Chronic, very elevated left hemidiaphragm
== END 2019-01-14 12:41 | disposition home or self-care (01) ==
LOC: SCSRAD 12:40
PROVIDERS: ATTEND Family Medicine
DX: R06.2 Wheezing (principal)
CPT/HCPCS: 71046

== ENCOUNTER 2019-01-22 12:56 | Outpatient (CLI) | payer MEDICARE, MEDICAID ==
--- NOTE | 2019-01-22 13:28 | RAD ---
2 views chest: 01/22/2019 COMPARISON: 01/14/2019 HISTORY: Shortness of breath FINDINGS: There is no pneumothorax seen on either side. Possible abnormality within the mid right tylor g zone questioned on the prior examination is no longer seen. There is marked elevation of the left hemidiaphragm limiting assessment of the left lung base, stable. No lobar consolidation or alveolar e gifty. There is scoliosis of the thoracic or lumbar spine. IMPRESSION: No acute findings.
== END 2019-01-22 12:57 | disposition home or self-care (01) ==
LOC: SCSRAD 12:56
PROVIDERS: ATTEND Family Medicine
DX: R06.2 Wheezing (principal)
CPT/HCPCS: 71046

== ENCOUNTER 2019-03-27 15:30 | Outpatient (CLI) | payer MEDICARE, MEDICAID ==
--- NOTE | 2019-03-27 18:01 | MRI ---
NONCONTRAST MRI LUMBAR SPIN: 03/27/19 HISTORY: Spinal stenosis of the lumbar region. Patient complains of low back pain with pain radiating down the left lower extremity for six months. COMPARISON: 02/25/08 as well as CTA abdomen and pelvis on 06/17/18. FINDINGS: There is severe left convexed scoliosis of the lumbar spine. There is what appears to be fusion or at least partial fusion of the L1 through L5 vertebral bodies. Prominent end plate degenerative changes are seen at the lumbosacral junction and there is decreased signal intensity seen in the intervertebral disc in this region, probably related to vacuum phenomeno n which was present on the prior CTA of the abdomen and pelvis. The conus medullaris is normal in appearance and terminates at the level of the L1 vertebral body. T9-10 level: There is a broad based disc osteophyte complex and facet degenerative changes. This resu lts in mild effacement of the ventral subarachnoid space. There is mild to moderate left sided neural foraminal narrowing. The right neural foramen is patent. T10-11 level: There is a broad based disc osteophyte complex with prominent facet hypertrophic change s. There is severe left sided neural foraminal narrowing with mild right sided neural foraminal narro wing. There is mild to moderate narrowing of the central spinal canal. T11-12 level: There is a broad based disc osteophyte complex with facet hypertrophic changes and liga mentous thickening. These findings result in moderate to severe right and severe left sided neural fo raminal narrowing with moderate narrowing of the central spinal canal. T12-L1 level: There is a broad based disc osteophyte complex with facet hypertrophic changes and liga mentous thickening. There is generalized mild narrowing of the central spinal canal. There is mild ri ght and severe left sided neural foraminal narrowing. L1-2 level: There is posterior osteophyte formation at this level and facet hypertrophic changes. The re is mild to moderate narrowing of the central spinal canal. Mild bilateral neural foraminal narrowi ng is present, greater on the right. L2-3 level: There is posterior osteophyte formation present. Prominent facet hypertrophic changes are identified. There is question of clumping of the nerve roots in the right aspect of the thecal sac, but this is most likely attributable to the scoliotic curvature. The left neural foramen is patent, b ut there is moderate to severe right sided neural foraminal narrowing. L3-4 level: There is posterior osteophyte formation. Facet hypertrophic changes are noted. Findings r esult in mild narrowing of the central spinal canal. The left neural foramen is patent, but there is moderate right sided neural foraminal narrowing. L4-5 level: There is posterior osteophyte formation and facet hypertrophic changes. Ligamentous thick ening is present. There is moderate narrowing of the central spinal canal. There is severe bilateral neural foraminal narrowing. L5-S1 level: There is a broad based disc osteophyte complex and severe facet hypertrophic changes. Th ere is moderate narrowing of the central spinal canal as well as severe narrowing of the left lateral recess at this level. Severe right sided neural foraminal narrowing is present with moderate to panchito re left sided neural foraminal narrowing. Findings are similar to the study in 2008. IMPRESSION: 1. Fusion or at least partial fusion of the L1 through L5 vertebral bodies with left convex scol iosis of the lumbar spine. 2. Multilevel degenerative changes with moderate and severe degrees of neural foraminal narrowin g at multiple levels as described above. There is also prominent degenerative changes of the lower th oracic spine where there are also severe degrees of left sided neural foraminal narrowing at the T10- 11, T11-12, and T12-L1 levels. 3. Subcentimeter increased T2 weighted signal intensity focus right kidney statistically likely representing a small cyst. POS: RODRIGUEZ
== END 2019-03-27 15:31 | disposition home or self-care (01) ==
LOC: SCSMRI 15:30
PROVIDERS: ATTEND Orthopaedic Surgery
DX: M48.061 Spinal stenosis, lumbar region without neurogenic claudication (principal); M48.04 Spinal stenosis, thoracic region; M48.05 Spinal stenosis, thoracolumbar region; Z98.1 Arthrodesis status; M47.816 Spondylosis without myelopathy or radiculopathy, lumbar region
CPT/HCPCS: 72148

== ENCOUNTER 2019-10-18 07:18 | Outpatient (CLI) | payer MEDICARE, MEDICAID ==
[2019-10-18 15:37] LABS: Hemoglobin A1c 5.8 % (4.0-6.0)
[2019-10-18 15:45] LABS: Hemoglobin 13.8 g/dL (12.0-16.0); Mean Corpuscular HGB CONC 32.4 g/dL (32.0-36.0); Mean Corpuscular Hemoglobin 31.8 pg (27.0-31.0); Mean Corpuscular Volume 98.1 fL (78.0-98.0); Mean Platelet Volume 8.4 fL (7.4-10.4); Platelet Count 177 thou/uL (130-400); RBC Distribution Width 14.4 % (11.5-14.5); Red Blood Cell (RBC) Count 4.34 mill/uL (4.20-5.40); White Blood Cell (WBC) Count 6.2 thou/uL (4.8-10.8)
[2019-10-18 15:49] LABS: Anion Gap 15 mmol/L (10-20); BUN (Urea Nitrogen) 17 mg/dL (9.8-20.1); Calc. Creatinine Clearance 0 mL/min (70-130); Calcium 9.5 mg/dL (7.8-10.44); Carbon Dioxide 25 mmol/L (23-31); Chloride 102 mmol/L (98-107); Estimated GFR-MDRD 37; Glucose 160 mg/dL (83-110); Potassium 4.8 mmol/L (3.5-5.1); Sodium 137 mmol/L (136-145)
[2019-10-18 16:02] LABS: Band 1 % (5-11); Lymphocytes 31 % (21-51); MDiff Complete? YES; Monocytes 5 % (0-10); Neutrophil 62 % (42-75); Platelet Morphology Comment Appears Adequate; RBC Morphology Normal
--- NOTE | 2019-10-22 09:58 | EKG ---
Test Reason : Blood Pressure : / mmHG Vent. Rate : 075 BPM Atrial Rate : 075 BPM P-R Int : 154 ms QRS Dur : 084 ms QT Int : 396 ms P-R-T Axes : 062 008 075 degrees QTc Int : 442 ms Normal sinus rhythm Nonspecific T wave abnormality Borderline ECG Confirmed by JEFFERSON SIMEON ([id number]) on 10/22/2019 9:57:39 AM Referred By: CAITLIN Confirmed By:JEFFERSON SIMEON
== END 2019-10-18 07:19 | disposition home or self-care (01) ==
LOC: LABBT 07:18
PROVIDERS: ATTEND Surgery
DX: Z01.818 Encounter for other preprocedural examination (principal); K63.89 Other specified diseases of intestine
CPT/HCPCS: 80048; 83036; 85025; 93005; 93010

== ENCOUNTER 2019-10-18 13:00 | Inpatient (IN) | payer MEDICARE, MEDICAID ==
[2019-10-22] MEDS ORDERED: ceFOXitin 2 GM/50 ML Duplex BAG ONE (08:50)
[2019-10-22] MEDS ORDERED: Midazolam HCl 2 mg/ml Syrup 5 ml UD Cup ONE (09:00)
[2019-10-22] MEDS ORDERED: Fentanyl 100 MCG/2 ML VIAL ONE ×3 (09:00→13:59)
[2019-10-22] MEDS ORDERED: Midazolam HCl 2 mg/2 ml Vial ONE (09:01)
[2019-10-22] MEDS ORDERED: Bupivacaine 0.25% HCL 30 ML VIAL ONE (09:31)
[2019-10-22] MEDS ORDERED: Rocuronium Bromide 10 MG/ML (10ML VIAL) ONE (09:36)
[2019-10-22] MEDS ORDERED: PHENYLEPHRINE-NS 100 MCG/ML 10 ML SYRINGE ONE (09:36)
[2019-10-22] MEDS ORDERED: Lidocaine 1% PF 5 ML VIAL ONE (09:36)
[2019-10-22] MEDS ORDERED: Ondansetron PF 4 MG/2 ML Vial ONE (09:36)
[2019-10-22] MEDS ORDERED: EPHEDRINE 25 MG/5 ML SYRINGE ONE (09:36)
[2019-10-22] MEDS ORDERED: Bupivacaine HCl 0.5%/Epinephrine 1:200,000/PF 30 ml Vial ONE (09:36)
[2019-10-22] MEDS ORDERED: Glycopyrrolate 0.2 MG/ML 5 ML SYRINGE ONE (09:36)
[2019-10-22] MEDS ORDERED: Labetalol HCl 100 MG/20 ML VIAL ONE (12:00)
[2019-10-22] MEDS ORDERED: Labetalol HCl 100 MG/20 ML VIAL SLOW IVP SCH (14:15)
[2019-10-22] MEDS ORDERED: hydrALAZINE 20 MG/ML VIAL SLOW IVP PRN (14:52)
[2019-10-22] MEDS ORDERED: Fentanyl 100 MCG/2 ML VIAL SLOW IVP PRN (14:52)
[2019-10-22] MEDS ORDERED: Ondansetron PF 4 MG/2 ML Vial IVP PRN (14:52)
[2019-10-22] MEDS ORDERED: Promethazine HCl 25 MG/ML VIAL IM PRN (14:52)
[2019-10-22 14:55] VITALS: BMI 29.9
--- NOTE | 2019-10-22 15:06 | OP ---
DATE OF PROCEDURE: 10/22/2019 PREOPERATIVE DIAGNOSIS: Ascending colon mass. POSTOPERATIVE DIAGNOSIS: Ascending colon mass. PROCEDURE PERFORMED: Open right colectomy with isoperistaltic ileum to transverse colon anastomosis. ANESTHESIA: General. ESTIMATED BLOOD LOSS: 100 mL. COMPLICATIONS: None. FINDINGS: Multiple adhesions in the abdomen from previous surgery. DESCRIPTION OF PROCEDURE: The patient was taken to the operating room and laid supine on the operating room table. After general anesthetic was obtained, a Cline was placed. The abdomen was prepped and draped in a sterile fashion. Left subcostal 5 mm Optiview trocar was placed in the usual fashion without injury and high-flow pneumoperitoneum was obtained. The patient had significant intra-abdominal adhesions including in the midline with a bowel stuck to the posterior peritoneum. Decision was made to open midline incision, it was made, cautery dissected down through and entered the abdominal cavity. Multiple intraabdominal adhesions were taken down from the posterior abdominal wall. There were several interloop adhesions in the area of the terminal ileum. The right colon was mobilized along the white line of Toldt using cautery. The hepatic flexure was mobilized in the usual fashion. PAULIE 75 stapler was fired across the terminal ileum. A reload was fired across the proximal transverse colon. The blue tattooed area was in the cecum. The ileocolic vessels were taken low using Nadia clamp and silk tie. The specimen was opened on the back table to reveal a large polyp to be in the specimen. An isoperistaltic anastomosis was performed in a [id number] fashion. There was no tension. The common enterotomy was closed using running Vicryl suture. There was no bleeding in the abdomen. All instrument counts, needle counts, and lap counts were correct. There was no evidence of ischemia to the staple line either. Midline fascia was closed using #1 PDS from the top and bottom and tied in the middle. Subcutaneous tissues were irrigated and closed using 3-0 Vicryl, 4-0 Monocryl, and Dermabond. The patient was sent to Recovery in stable condition. All instrument counts, needle counts, and lap counts were correct. Job ID: [id number]
[2019-10-22 15:38] LABS: HBSAg Index 0.33 S/CO (0-0.99); HIV (1/2) Antibody/Antigen Non-Reactive (NonReactive); HIV 1/2 INDEX 0.12 S/CO (<1.00); Hep B Surf Ag Non-Reactive S/CO (NonReactive); Hep C IgG Ab Non-Reactive (NonReactive); Hep C Index 0.09 S/CO (0-0.79)
[2019-10-22] MEDS: Sodium Chloride 0.9% 1,000 ML IV SCH (16:14)
[2019-10-22] MEDS ORDERED: PROVENTIL INHALER 6.7 G (200 INHALATIONS) INH PRN (16:15)
[2019-10-22] MEDS: Gabapentin 300 MG CAP PO SCH ×2 (16:31→20:28)
[2019-10-22] MEDS: HumaLOG 300 UNITS/3 ML VIAL SC PRN (16:36)
[2019-10-22] MEDS ORDERED: cefOXitin 2 GM in Sodium Chloride 0.9% 100 ML IVPB SCH (18:00)
[2019-10-22] MEDS: cefOXitin Sodium/Dextrose,Iso 2 GM in Premix Bag 1 BAG IVPB SCH (18:03)
[2019-10-22] MEDS: Acetaminophen 325 MG TAB PO SCH (18:03)
[2019-10-22] MEDS: Hydroxychloroquine Sulfate 200 MG TAB PO SCH (20:28)
[2019-10-22] MEDS: Donepezil HCl 5 MG TAB PO SCH (20:28)
[2019-10-22] MEDS ORDERED: Enoxaparin Sodium 40 MG/0.4 ML SYRINGE SC SCH (21:00)
[2019-10-22] MEDS ORDERED: Famotidine/PF 20 mg/2ml Vial SLOW IVP SCH (21:00)
[2019-10-22] MEDS ORDERED: Famotidine 20 MG TAB PO SCH (21:00)
[2019-10-22] MEDS ORDERED: ALPRAZolam 0.5 MG TAB PO SCH (21:30)
[2019-10-22] MEDS ORDERED: Atorvastatin Calcium 20 MG TAB PO SCH (21:30)
[2019-10-23] MEDS: Acetaminophen 325 MG TAB PO SCH ×4 (00:10→17:46)
[2019-10-23] MEDS: HumaLOG 300 UNITS/3 ML VIAL SC PRN ×2 (00:14→12:42)
[2019-10-23] MEDS: Sodium Chloride 0.9% 1,000 ML IV SCH (02:10)
[2019-10-23] MEDS: cefOXitin Sodium/Dextrose,Iso 2 GM in Premix Bag 1 BAG IVPB SCH (02:10)
[2019-10-23 05:17] LABS: #Basophils 0.1 thou/uL (0.0-0.2); #Lymphocytes 1.6 thou/uL (1.20-3.40); #Monocytes 0.8 thou/uL (0.11-0.59); #Neutrophils 5.4 thou/uL (1.40-6.50); %Basophils 0.6 % (0.0-1.0); %Eosinophils 0.5 % (0.0-10.0); %Lymphocytes 19.8 % (21.0-51.0); %Monocytes 10.5 % (0.0-10.0); %Neutrophils 68.6 % (42.0-75.0); Hemoglobin 10.3 g/dL (12.0-16.0); Mean Corpuscular HGB CONC 34.2 g/dL (32.0-36.0); Mean Corpuscular Hemoglobin 34.3 pg (27.0-31.0); Mean Platelet Volume 8.4 fL (7.4-10.4); Platelet Count 164 thou/uL (130-400); RBC Distribution Width 14.1 % (11.5-14.5); Red Blood Cell (RBC) Count 3.02 mill/uL (4.20-5.40); White Blood Cell (WBC) Count 7.9 thou/uL (4.8-10.8)
[2019-10-23 05:36] LABS: Anion Gap 11 mmol/L (10-20); BUN (Urea Nitrogen) 12 mg/dL (9.8-20.1); Calc. Creatinine Clearance 36 mL/min (70-130); Calcium 8.1 mg/dL (7.8-10.44); Carbon Dioxide 24 mmol/L (23-31); Chloride 105 mmol/L (98-107); Estimated GFR-MDRD 38; Glucose 133 mg/dL (83-110); Potassium 4.1 mmol/L (3.5-5.1); Sodium 136 mmol/L (136-145)
--- NOTE | 2019-10-23 07:12 | PDOC.GSPN ---
Surgery Progress Note: Subj - Subjective Narrative: Ms. Perez is an 84 F POD#1 following open right colectomy. She is doing well this AM. Denies pain. She is currently on IV fluids with 500 ml of urine output in 12 hours. Cline was removed this morning. She is now wearing a diaper but has not yet voided. She is tolerating clear liquid diet well and denies nausea, vomiting, bloating. She has not yet had a bowel movement or passed gas. She was placed on NC oxygen last night due to desaturation. She denies difficulty breathing this AM and is currently on 2L oxygen. PT is expected to come by this morning. Surgery Progress Note: Obj - Vital signs Vital signs: Vital Signs - Most Recent Temp Pulse Resp BP Pulse Ox 99.2 F 89 16 116/71 97 10/23/19 04:18 10/23/19 04:18 10/23/19 04:18 10/23/19 04:18 10/23/19 04:18 - Physical Exam General: no distress Cardiovascular: regular rate and rhythm Respiratory: clear to auscultation Abdomen: soft, decreased bowel sounds, appropriately tender Wound: dressing clean,dry,intact (dressing in place over left trocar incision), healing well (slight erythema surrounding midline incision) Surgery Progress Note: Results - Labs Result Diagrams: 10/23/19 04:43 10/23/19 04:43 Lab results: Laboratory Results - last 24 hr 10/23/19 10/23/19 10/23/19 00:14 04:43 04:43 WBC 7.9 RBC 3.02 L Hgb 10.3 L Hct 30.2 L MCV 100.0 H MCH 34.3 H MCHC 34.2 RDW 14.1 Plt Count 164 MPV 8.4 Neutrophils % 68.6 Lymphocytes % 19.8 L Monocytes % 10.5 H Eosinophils % 0.5 Basophils % 0.6 Neutrophils # 5.4 Lymphocytes # 1.6 Monocytes # 0.8 H Eosinophils # 0.0 Basophils # 0.1 Sodium 136 Potassium 4.1 Chloride 105 Carbon Dioxide 24 Anion Gap 11 BUN 12 Creatinine 1.59 H Estimated GFR (MDRD) 38 Glucose 133 H POC Glucose 212 H Calcium 8.1 10/23/19 05:21 WBC RBC Hgb Hct MCV MCH MCHC RDW Plt Count MPV Neutrophils % Lymphocytes % Monocytes % Eosinophils % Basophils % Neutrophils # Lymphocytes # Monocytes # Eosinophils # Basophils # Sodium Potassium Chloride Carbon Dioxide Anion Gap BUN Creatinine Estimated GFR (MDRD) Glucose POC Glucose 143 H Calcium Surgery Progress Note: A/P - Plan Plan: Ms. Perez is an 84 F POD#1 following open right colectomy. 1. Pain is well controlled. Continue pain medication. 2. Slight erythema surrounding midline incision. Otherwise appears to be healing well. Continue to monitor. 3. Patient on clear liquid diet. Denies nausea, vomiting. Advance diet as tolerated. 4. Cline was removed this morning. Ensure voiding without difficulty in diaper. 4. Patient currently on IV fluids. Wean fluids according to appropriate PO intake. 5. Patient currently on 2 L NC oxygen. Try to wean oxygen this morning and monitor oxygen saturation. 6. PT to consult sometime today. 7. Encourage IS. Addendum - Physician - Physician Attestation Date/Time: 10/23/19 [id number] I personally performed or re-performed the physical examination and medical decision making. I have verified all student documentation or findings, including history, physical exam and/or medical decision making. Doing well. Pain controlled. PT to ambulate today. Advance to full liquids I do not want to overload, willing to accept lower UOP. TKO IVF Follow creatinine daily given her history of chronic renal insuf
[2019-10-23] MEDS: Hydroxychloroquine Sulfate 200 MG TAB PO SCH ×2 (08:27→20:40)
[2019-10-23] MEDS: ALPRAZolam 0.5 MG TAB PO SCH ×3 (08:27→20:39)
[2019-10-23] MEDS: Gabapentin 300 MG CAP PO SCH ×3 (08:27→20:40)
[2019-10-23] MEDS ORDERED: Sodium Chloride 0.9% 1,000 ML IV SCH (09:26)
[2019-10-23] MEDS: Donepezil HCl 5 MG TAB PO SCH (20:39)
[2019-10-23] MEDS: Enoxaparin Sodium 30 MG/0.3 ML SYRINGE SC SCH (20:40)
[2019-10-23] MEDS: Famotidine 20 MG TAB PO SCH (20:40)
[2019-10-23] MEDS: Atorvastatin Calcium 20 MG TAB PO SCH (20:40)
[2019-10-23] MEDS: Famotidine/PF 20 mg/2ml Vial SLOW IVP SCH (20:41)
[2019-10-24] MEDS: HumaLOG 300 UNITS/3 ML VIAL SC PRN ×3 (00:31→17:25)
[2019-10-24] MEDS: Acetaminophen 325 MG TAB PO SCH ×5 (00:32→23:42)
[2019-10-24 05:31] LABS: Anion Gap 11 mmol/L (10-20); BUN (Urea Nitrogen) 9 mg/dL (9.8-20.1); Calc. Creatinine Clearance 51 mL/min (70-130); Calcium 8.9 mg/dL (7.8-10.44); Carbon Dioxide 24 mmol/L (23-31); Chloride 108 mmol/L (98-107); Estimated GFR-MDRD 55; Glucose 130 mg/dL (83-110); Sodium 139 mmol/L (136-145)
--- NOTE | 2019-10-24 07:38 | PDOC.GSPN ---
Surgery Progress Note: Subj - Subjective Narrative: Ms. Perez is an 84 F POD#2 following right colectomy. She is more disoriented this AM and believes she is at home. She attempted to get out of bed this morning and IV line was pulled. Nurse says she became more confused during the night. She denies pain. She has been voiding in her diaper. She is tolerating full liquid diet well and denies nausea, vomiting. She has had a BM. She is breathing without difficulty on room air. Walking was attempted with patient yesterday, but she was unable to stand for longer than 5 seconds. Surgery Progress Note: Obj - Vital signs Vital signs: Vital Signs - Most Recent Temp Pulse Resp BP Pulse Ox 98.7 F 105 H 18 156/75 H 96 10/24/19 04:16 10/24/19 04:16 10/24/19 04:16 10/24/19 04:16 10/24/19 04:16 - Physical Exam General: no distress Cardiovascular: regular rate and rhythm Respiratory: clear to auscultation Abdomen: soft, non tender, nondistended, positive bowel sounds Psychiatric: other (more disoriented this AM; has to be told that she is in the hospital) Wound: healing well Surgery Progress Note: Results - Labs Result Diagrams: 10/23/19 04:43 10/24/19 04:54 Lab results: Laboratory Results - last 24 hr 10/24/19 10/24/19 10/24/19 00:22 04:54 04:57 Sodium 139 Potassium 4.0 Chloride 108 H Carbon Dioxide 24 Anion Gap 11 BUN 9 L Creatinine 1.14 H Estimated GFR (MDRD) 55 Glucose 130 H POC Glucose 214 H 132 H Calcium 8.9 Surgery Progress Note: A/P - Plan Plan: Ms. Perez is an 84 F POD#2 following right colectomy. 1. Pain well controlled. Continue pain medication. 2. Patient on full liquid diet. Denies nausea, vomiting. Has had BM. 3. Patient more disoriented today. Bed alarms activated. Continue to try and orient and monitor. 4. BUN 9, Cre 1.14 today, decreased from BUN 12, Cre 1.59 yesterday. Continue to monitor renal function due to history of chronic renal insufficiency. 5. Continue work with PT. 6. Encourage IS. Addendum - Physician - Physician Attestation Date/Time: 10/24/19 2873 I personally performed or re-performed the physical examination and medical decision making. I have verified all student documentation or findings, including history, physical exam and/or medical decision making. Seems to be tolerating liquid diet, leave IV out unless vomits More confused as expected I suspect she will need jail, will discuss with daughter Cheryl.
[2019-10-24] MEDS: Hydroxychloroquine Sulfate 200 MG TAB PO SCH ×2 (09:31→21:31)
[2019-10-24] MEDS: Gabapentin 300 MG CAP PO SCH ×3 (09:31→21:31)
[2019-10-24] MEDS: ALPRAZolam 0.5 MG TAB PO SCH ×3 (09:41→21:32)
[2019-10-24] MEDS: Famotidine 20 MG TAB PO SCH (21:32)
[2019-10-24] MEDS: Famotidine/PF 20 mg/2ml Vial SLOW IVP SCH (21:32)
[2019-10-24] MEDS: Enoxaparin Sodium 30 MG/0.3 ML SYRINGE SC SCH (21:32)
[2019-10-24] MEDS: Donepezil HCl 5 MG TAB PO SCH (21:32)
[2019-10-24] MEDS: Atorvastatin Calcium 20 MG TAB PO SCH (21:32)
[2019-10-25] MEDS: HumaLOG 300 UNITS/3 ML VIAL SC PRN ×4 (00:20→21:37)
[2019-10-25 06:00] LABS: Anion Gap 10 mmol/L (10-20); BUN (Urea Nitrogen) 5 mg/dL (9.8-20.1); Calc. Creatinine Clearance 57 mL/min (70-130); Carbon Dioxide 28 mmol/L (23-31); Chloride 106 mmol/L (98-107); Estimated GFR-MDRD 63; Glucose 121 mg/dL (83-110); Potassium 3.7 mmol/L (3.5-5.1); Sodium 140 mmol/L (136-145)
[2019-10-25] MEDS: Acetaminophen 325 MG TAB PO SCH ×4 (06:05→23:44)
--- NOTE | 2019-10-25 07:26 | PDOC.GSPN ---
Surgery Progress Note: Subj - Subjective Narrative: Ms. Perez is an 84F POD#3 following right colectomy. She remained confused throughout the day yesterday but slept well overnight. She denies pain. She has been voiding in her diaper without difficulty. She has had a bowel movement. She is tolerating full liquid diet well and denies nausea, vomiting. PT worked with her on sitting to standing. Surgery Progress Note: Obj - Vital signs Vital signs: Vital Signs - Most Recent Temp Pulse Resp BP Pulse Ox 98.4 F 70 16 127/77 96 10/25/19 01:03 10/25/19 01:03 10/25/19 01:03 10/25/19 01:03 10/25/19 01:03 - Physical Exam General: no distress Cardiovascular: regular rate and rhythm Respiratory: clear to auscultation Abdomen: soft, non tender, nondistended, positive bowel sounds Wound: healing well Surgery Progress Note: Results - Labs Result Diagrams: 10/23/19 04:43 10/25/19 04:57 Lab results: Laboratory Results - last 24 hr 10/25/19 10/25/19 10/25/19 00:17 04:57 05:08 Sodium 140 Potassium 3.7 Chloride 106 Carbon Dioxide 28 Anion Gap 10 BUN 5 L Creatinine 1.01 Estimated GFR (MDRD) 63 Glucose 121 H POC Glucose 263 H 126 H Calcium 9.0 Surgery Progress Note: A/P - Plan Plan: Ms. Perez is an 84F POD#3 following right colectomy. 1. Pain well controlled. Tylenol available if needed. 2. Patient on full liquid diet. Denies nausea, vomiting. Advance diet as tolerated. 3. Patient more confused yesterday. This can be expected. Continue to monitor orientation today. 4. Cre 1.01 today; decreased from Cre 1.14 yesterday. Lovenox dosed renally. Continue to monitor renal function due to history of chronic renal insufficiency. 5. Patient was on Plavix prior to surgery. Consider restarting medication. 6. Continue to work with PT. 7. Encourage IS. Addendum - Physician - Physician Attestation Date/Time: 10/25/19 1044 I personally performed or re-performed the physical examination and medical decision making. I have verified all student documentation or findings, including history, physical exam and/or medical decision making. Less confused today. Tolerated full liquids, having bowel movements Very weak with PT [facility] after DC Dr. Martin covering for me this weekend
[2019-10-25] MEDS: ALPRAZolam 0.5 MG TAB PO SCH ×3 (08:47→20:31)
[2019-10-25] MEDS: Clopidogrel Bisulfate 75 MG TAB PO SCH (08:48)
[2019-10-25] MEDS: Gabapentin 300 MG CAP PO SCH ×3 (08:49→20:31)
[2019-10-25] MEDS: Aspirin Chewable 81 MG TAB PO SCH (08:49)
[2019-10-25] MEDS: Hydroxychloroquine Sulfate 200 MG TAB PO SCH ×2 (09:00→20:32)
[2019-10-25] MEDS: Atorvastatin Calcium 20 MG TAB PO SCH (20:31)
[2019-10-25] MEDS: Donepezil HCl 5 MG TAB PO SCH (20:32)
[2019-10-25] MEDS: Famotidine 20 MG TAB PO SCH (20:32)
[2019-10-25] MEDS: Famotidine/PF 20 mg/2ml Vial SLOW IVP SCH (20:37)
[2019-10-25] MEDS ORDERED: hydrALAZINE 10 MG TAB PO PRN (21:21)
[2019-10-26] MEDS: Acetaminophen 325 MG TAB PO SCH ×2 (06:20→11:18)
[2019-10-26] MEDS: HumaLOG 300 UNITS/3 ML VIAL SC PRN ×2 (06:21→11:22)
[2019-10-26] MEDS: ALPRAZolam 0.5 MG TAB PO SCH (08:00)
[2019-10-26] MEDS: Clopidogrel Bisulfate 75 MG TAB PO SCH (08:00)
[2019-10-26] MEDS: Aspirin Chewable 81 MG TAB PO SCH (08:00)
[2019-10-26] MEDS: Hydroxychloroquine Sulfate 200 MG TAB PO SCH (08:00)
[2019-10-26] MEDS: Gabapentin 300 MG CAP PO SCH (08:00)
[2019-10-26 12:10] VITALS: BP 153/83; TEMP 97.7
--- NOTE | 2019-10-27 05:24 | PRG ---
DATE OF SERVICE: 10/26/2019 SUBJECTIVE: Patient of Dr. Olguin, status post right hemicolectomy, doing well, really having minimal pain. She has taken Tylenol. She has been accepted by Rehab. Her bowels are functioning well. She is tolerating a soft diet. OBJECTIVE: VITAL SIGNS: Her temperature is 98, pulse 79, blood pressure 140/80. GENERAL: She looks good. The wound is healing well. There is no abdominal distention, just normal postop tenderness. ASSESSMENT: Doing well. PLAN: Discharge to rehab. Job ID: [id number]
--- NOTE | 2019-10-28 03:08 | PQF ---
MUSHTAQ YUAN BRYAN DAVID MD [id number] [facility] [id number] CLINICAL DOCUMENTATION CLARIFICATION FORM: POST DISCHARGE Addendum to original discharge summary date: ____ Late entry note date: __ DATE: 10/28/2019 ATTN: Scott Olguin Please exercise your independent, professional judgment in responding to the clarification form. Clinical indicators are provided on the bottom of this form for your review ___ Final Diagnosis on the Pathology report: Right colon: Peduculated tubulovillous adenoma ___ Progress Notes indicate: Ascending colon mass Clarification of Pathology report: Please check appropriate box(s): [ ] Agree w the pathology finding of: Right colon: Pediculated tubulovillous adenoma [ X ] Other explanation of pathology findings (please specify)___original biopsy showed adenocarcinoma [ ] Other diagnosis [ ] Unable to determine For continuity of documentation, please document condition throughout progress notes and discharge summary. Thank You. CLINICAL INDICATORS - SIGNS/ SYMPTOMS / LABS Path 10/22 "Right colon: Pediculated tubulovillous adenoma" OP Note 10/22 "Ascending colon mass" RISK FACTORS OP Note 10/22-Adhesions PN 10/23-84 years old female TREATMENTS OP Note 10/22-Right colectomy PN 10/23-IVF PN 10/23-Oxygen (This form is maintained as a part of the permanent medical record) 2014 [employer]. All Rights Reserved [email or web address] [phone] [email or web address]
--- NOTE | 2019-10-28 03:13 | PQF ---
MUSHTAQ YUAN BRYAN DAVID MD [id number] [facility] A 3308 [id number] CLINICAL DOCUMENTATION CLARIFICATION FORM: POST DISCHARGE Addendum to original discharge summary date: ____ Late entry note date: __ DATE: 10/28/2019 ATTN: Scott Olguin Please exercise your independent, professional judgment in responding to the clarification form. Clinical indicators are provided on the bottom of this form for your review Please check appropriate box(s): [ ] Encephalopathy: Etiology: [ ] Metabolic [ ] Toxic [ ] Drug induced: [ ] Unspecified [ ] Other (please specify) [ x ] Transient Alteration of Awareness [ ] Other diagnosis [ ] Unable to determine In addition, please specify: Present on Admission (POA): [ ] Yes [ ] No [ ] Unable to determine For continuity of documentation, please document condition throughout progress notes and discharge summary. Thank You. CLINICAL INDICATORS - SIGNS / SYMPTOMS / LABS PN 10/24 "She is more disoriented this AM" PN 10/24 "She became more confused during the night" PN 10/24 "BUN 9, Creatinine 1.14 today, decreased from BUN 12, Creatinine 1.59 yesterday." RISK FACTORS OP Note 10/22-Adhesions PN 10/23-84 years old female OP Note 10/22-Colon Mass PN 10/24-CKD TREATMENTS: OP Note 10/22-Right colectomy PN 10/23-IVF PN 10/23-Oxygen PN 10/24-Continue to orient and monitor (This form is maintained as a part of the permanent medical record) 2014 [employer]. All Rights Reserved [email or web address] [phone] [email or web address]
--- NOTE | 2019-10-28 11:03 | DIS ---
DATE OF ADMISSION: 10/22/2019 DATE OF DISCHARGE: 10/26/2019 ADMISSION DIAGNOSIS: Colon mass. DISCHARGE DIAGNOSIS: Colon mass. PROCEDURES: Open right hemicolectomy by Dr. Olguin without complication. CONDITION ON DISCHARGE: Improved. HOSPITAL COURSE: Postop course was uneventful. She was on a liquid diet immediately after surgery. She was found to be quite weak with physical therapy on postop day #1, so a referral for usp versus rehab was obtained. She tolerated the liquid diet without difficulty. She did have some postop confusion that was expected given her baseline history of stroke and advanced age. This resolved prior to discharge. On the day of discharge, she is doing well. Her wounds are healing well. Her pathology revealed only benign disease and she was able to work with physical therapy without difficulty. She was discharged to [facility]. She will follow up with me in the office a week after that discharge. Job ID: [id number]
--- NOTE | 2019-10-29 21:56 | PQF ---
MUSHTAQ YUAN BRYAN DAVID MD [id number] [facility] A- 3308 [id number] CLINICAL DOCUMENTATION CLARIFICATION FORM: POST DISCHARGE Addendum to original discharge summary date: ____ Late entry note date: __ DATE: 10/29/2019 ATTN:Scott Olguin Please exercise your independent, professional judgment in responding to the clarification form. Clinical indicators are provided on the bottom of this form for your review Please check appropriate box(s): [ ] Peritoneal adhesion as a complication of previous surgery [ ] Peritoneal adhesion not a complication of previous surgery [ ] Other diagnosis [ ] Unable to determine In addition, please specify: Present on Admission (POA): [ ] Yes [ ] No [ ] Unable to determine CLINICAL INDICATORS - SIGNS / SYMPTOMS / LABS OP Note 10/22 "Findings:multiple adhesions in the abdomen from previous surgery " OP Note 10/22 "Ascending colon mass" RISK FACTORS Query response-Adenocarcinoma of colon OP Note 10/22-Adhesions PN 10/23-84 years old female HP-Former Smoker HP-History of hysterectomy TREATMENT: OP Note 10/22-Right colectomy PN 10/23-IVF PN 10/23-Oxygen (This form is maintained as a part of the permanent medical record) 2014 [email or web address]. All Rights Reserved [email or web address] [phone] MTDRaman
== END 2019-10-26 14:15 | DRG 331 ==
LOC: SURG A 10-22 08:13
PROVIDERS: ADMIT Surgery; ATTEND Surgery
PROC: 0DBF0ZZ Excision of Right Large Intestine, Open Approach (ICD-10-PCS; principal; 2019-10-22)
PROC: 0DNW0ZZ Release Peritoneum, Open Approach (ICD-10-PCS; 2019-10-22)
PROC: 0WJG4ZZ Inspection of Peritoneal Cavity, Percutaneous Endoscopic Approach (ICD-10-PCS; 2019-10-22)
DX: C18.2 Malignant neoplasm of ascending colon (principal); Z96.641 Presence of right artificial hip joint; N18.9 Chronic kidney disease, unspecified; K66.0 Peritoneal adhesions (postprocedural) (postinfection); Z88.5 Allergy status to narcotic agent; Z88.8 Allergy status to other drugs, medicaments and biological substances; Z90.710 Acquired absence of both cervix and uterus; Z53.31 Laparoscopic surgical procedure converted to open procedure; R41.0 Disorientation, unspecified; I12.9 Hypertensive chronic kidney disease with stage 1 through stage 4 chronic kidney disease, or unspecified chronic kidney disease; E11.22 Type 2 diabetes mellitus with diabetic chronic kidney disease; Z79.84 Long term (current) use of oral hypoglycemic drugs; Z79.51 Long term (current) use of inhaled steroids; Z79.899 Other long term (current) drug therapy; F32.9 Major depressive disorder, single episode, unspecified; F41.9 Anxiety disorder, unspecified; M17.0 Bilateral primary osteoarthritis of knee; E78.2 Mixed hyperlipidemia; H91.8X1 Other specified hearing loss, right ear; M35.00 Sjogren syndrome, unspecified; Z96.649 Presence of unspecified artificial hip joint; Z87.891 Personal history of nicotine dependence
CPT/HCPCS: 36415; 36416; 80048; 85025; 86803; 87340; 87389; 88309; J0670; J0690; J0694; J1650; J2001; J2250; J2405; J3010; S0020

== ENCOUNTER 2019-11-01 03:41 | Inpatient (IN) | payer MEDICARE, MEDICAID ==
[2019-11-01] MEDS ORDERED: Ondansetron PF 4 MG/2 ML Vial ONE (03:58)
[2019-11-01 04:18] LABS: #Lymphocytes 0.7 thou/uL (1.20-3.40); #Neutrophils 9.8 thou/uL (1.40-6.50); %Basophils 0.1 % (0.0-1.0); %Lymphocytes 6.2 % (21.0-51.0); %Monocytes 8.3 % (0.0-10.0); %Neutrophils 85.4 % (42.0-75.0); Hemoglobin 10.9 g/dL (12.0-16.0); Mean Corpuscular HGB CONC 32.8 g/dL (32.0-36.0); Mean Corpuscular Hemoglobin 31.9 pg (27.0-31.0); Mean Corpuscular Volume 97.2 fL (78.0-98.0); Mean Platelet Volume 6.9 fL (7.4-10.4); Platelet Count 362 thou/uL (130-400); RBC Distribution Width 14.3 % (11.5-14.5); White Blood Cell (WBC) Count 11.5 thou/uL (4.8-10.8)
[2019-11-01 04:40] LABS: ALT (SGPT) 17 U/L (8-55); AST (SGOT) 21 U/L (5-34); Albumin 3.5 g/dL (3.4-4.8); Alkaline Phosphatase 73 U/L (40-110); Anion Gap 12 mmol/L (10-20); BUN (Urea Nitrogen) 17 mg/dL (9.8-20.1); Bilirubin, Total 0.3 mg/dL (0.2-1.2); Calc. Creatinine Clearance 0 mL/min (70-130); Calcium 9.8 mg/dL (7.8-10.44); Carbon Dioxide 30 mmol/L (23-31); Chloride 99 mmol/L (98-107); Estimated GFR-MDRD 46; Globulin 3.6 g/dL (2.4-3.5); Glucose 253 mg/dL (83-110); Lipase 165 U/L (8-78); Potassium 4.5 mmol/L (3.5-5.1); Protein, Total 7.1 g/dL (6.0-8.3); Sodium 136 mmol/L (136-145)
[2019-11-01] MEDS ORDERED: Lidocaine Viscous Sol 2% 15 ml UD Cup ONE ×2 (05:06→08:57)
[2019-11-01] MEDS ORDERED: Proparacaine 0.5% Opth 15 ML BOT ONE (05:40)
[2019-11-01] MEDS ORDERED: Oxymetazoline HCl 0.05% (30 ML BOT) ONE (05:40)
--- NOTE | 2019-11-01 06:35 | CT ---
CT ABDOMEN AND PELVIS WITH CONTRAST: Date: 11/01/2019 COMPARISON: 06/17/2018. HISTORY: Large bowel resection 3 days ago for possible malignancy. Multiple episodes of vomiting and oral into lerance. TECHNIQUE: Multiple contiguous axial images were obtained in a CT of the abdomen and pelvis with contrast. Sagit jose miguel and coronal reformats were performed. FINDINGS: Postsurgical changes are seen in the right colon. The colon is decompressed. There is scattered diver ticula in the left colon. The proximal small bowel loops are distended and small bowel feces sign is seen. The small bowel loops measure 4.3 cm in greatest dimension. The distal small bowel loops are de compressed. The stomach is also distended and there is elevation of the left hemidiaphragm. There is a small bubble of free air in the anterior mid abdomen which may be from recent surgery. No significa nt free fluid is seen in the pelvis. Evaluation of the pelvis is limited secondary to streak artifact from a right hip prosthesis. The gallbladder is decompressed. The liver, kidneys, adrenal glands, spleen, and pancreas are unremar kable. No abdominal or pelvic lymphadenopathy appreciated. Atherosclerotic calcifications are seen in the ao rta. Degenerative changes are seen in the spine. Sclerosis of the vertebral bodies may be secondary to the degenerative changes. Atelectasis is seen in the right lung base. Postsurgical changes are seen in the abdominal wall. IMPRESSION: 1. Distended loops of small bowel may be secondary to ileus or bowel obstruction. 2. Diverticulosis. POS: [facility]
--- NOTE | 2019-11-01 08:34 | RAD ---
PORTABLE CHEST 1 VIEW: DATE: 11/01/2019. TIME: 4:07 AM. HISTORY: Cough. FINDINGS/IMPRESSION: Comparison is made with the exam of 01/22/2019. There is continued mild elevation of the left hemidiaphragm with adjacent atelectatic change and hypo expansion of the left lung. There is mild atelectatic change in the right lung base. No pneumothora bry or large effusions are seen. POS: [facility]
[2019-11-01] MEDS ORDERED: Benzocaine 20% Spray 60 ML CAN ONE (08:57)
[2019-11-01] MEDS ORDERED: Famotidine/PF 20 mg/2ml Vial SLOW IVP SCH (09:00)
--- NOTE | 2019-11-01 09:06 | HP ---
CHIEF COMPLAINT: Nausea, vomiting, bloating. HISTORY OF PRESENT ILLNESS: This is an 84-year-old, who is status post open right hemicolectomy on 10/22/2019 by myself for unresectable large polyp that was associated with chronic iron deficiency and anemia. 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 Her postop course was fairly uneventful. She had bloating but was tolerating liquid diet. She was needing advanced to GI soft diet before transfer over to rehab. She is limited chronically due to history of stroke and was sent to rehab for acute on chronic deconditioning. In rehab, she developed increasing abdominal distention. She threw up yesterday and was disinterested in drinking much. Seen in the emergency department overnight, where she was found to be dehydrated. She underwent labs, which revealed no significant elevation of white blood cell count. CT scan showed small bowel dilation, but no obvious leak, abscess, intraabdominal infection. 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 PAST MEDICAL HISTORY: Includes diabetes, hypertension, hyperlipidemia, and Sjogren's syndrome. PAST SURGICAL HISTORY: Thyroidectomy, hysterectomy, small bowel resection from intraabdominal obstruction in 2003, carotid stent, iliac stent, and right hemicolectomy. MEDICATIONS: Taken daily at home include; 1. Glipizide. 2. Alprazolam. 3. Aricept. 4. . 5. Robaxin. 6. Sertraline. 7. Verapamil. 8. Levemir. 9. Hydroxychloroquine. ALLERGIES: CODEINE, HYDROCODONE, AND TRAMADOL. SOCIAL HISTORY: Lives with her daughter. REVIEW OF SYSTEMS: Otherwise negative. PHYSICAL EXAMINATION: VITAL SIGNS: Her blood pressure is 127/80, her pulse is 89, respirations are 14, and she is afebrile. CHEST: Clear. HEART: Regular rate. ABDOMEN: Distended, mostly in the upper abdomen. Her midline wound is healing well. There is no infection. She has no peritoneal signs. LABORATORY DATA: White blood cell count of 11, hemoglobin 10.9, and platelet count is 362. Sodium 136, potassium 4.5, and creatinine 1.3. IMAGING DATA: CT scan as above. ASSESSMENT: Recurrent ileus. PLAN: Admit to observation to start NG tube until her ileus resolves. Follow daily labs, on IV fluids. I suspect she will be back over at rehab on Monday. Job ID: [id number]
[2019-11-01] MEDS ORDERED: Famotidine 20 MG TAB PO SCH ×2 (10:05→10:30)
[2019-11-01] MEDS ORDERED: Morphine 2 MG/ML SYRINGE SLOW IVP PRN (10:05)
[2019-11-01] MEDS ORDERED: Ondansetron PF 4 MG/2 ML Vial IVP PRN (10:05)
[2019-11-01] MEDS ORDERED: Promethazine HCl 25 MG/ML VIAL IM PRN (10:05)
[2019-11-01] MEDS ORDERED: Morphine 4 MG/ML VIAL SLOW IVP PRN (10:05)
[2019-11-01] MEDS ORDERED: Dextrose 5% in Water 1,000 ML IV PRN (10:43)
[2019-11-01] MEDS ORDERED: Dextrose 50% Abboject 50 ML SYRINGE SLOW IVP PRN (10:43)
[2019-11-01] MEDS: Sodium Chloride 0.9% 1,000 ML IV SCH ×2 (12:05→21:10)
[2019-11-01] MEDS ORDERED: Heparin 1,000 UNITS/ML VIAL ONE (12:41)
[2019-11-01] MEDS ORDERED: Chloraseptic Spray 180 ml Bottle PO PRN (13:26)
[2019-11-01] MEDS ORDERED: Iopamidol-370 76% 500 ML 1 ML ONE (13:40)
[2019-11-01] MEDS: Enoxaparin Sodium 40 MG/0.4 ML SYRINGE SC SCH (19:51)
[2019-11-02 06:27] LABS: #Lymphocytes 0.9 thou/uL (1.20-3.40); #Neutrophils 8.1 thou/uL (1.40-6.50); %Basophils 0.1 % (0.0-1.0); %Eosinophils 0.5 % (0.0-10.0); %Lymphocytes 9.1 % (21.0-51.0); %Monocytes 9.9 % (0.0-10.0); %Neutrophils 80.5 % (42.0-75.0); Hemoglobin 10.9 g/dL (12.0-16.0); Mean Corpuscular Hemoglobin 31.5 pg (27.0-31.0); Mean Corpuscular Volume 98.5 fL (78.0-98.0); Mean Platelet Volume 7.2 fL (7.4-10.4); Platelet Count 335 thou/uL (130-400); RBC Distribution Width 14.5 % (11.5-14.5); Red Blood Cell (RBC) Count 3.46 mill/uL (4.20-5.40); White Blood Cell (WBC) Count 10.1 thou/uL (4.8-10.8)
[2019-11-02 06:59] LABS: Anion Gap 14 mmol/L (10-20); BUN (Urea Nitrogen) 21 mg/dL (9.8-20.1); Calc. Creatinine Clearance 36 mL/min (70-130); Calcium 9.3 mg/dL (7.8-10.44); Carbon Dioxide 24 mmol/L (23-31); Chloride 106 mmol/L (98-107); Estimated GFR-MDRD 40; Glucose 156 mg/dL (83-110); Potassium 4.1 mmol/L (3.5-5.1); Sodium 140 mmol/L (136-145)
[2019-11-02] MEDS ORDERED: Acetaminophen 650 MG Suppository PR PRN (07:06)
[2019-11-02] MEDS: Sodium Chloride 0.9% 1,000 ML IV SCH ×3 (08:01→22:19)
--- NOTE | 2019-11-02 12:24 | EKG ---
Test Reason : Blood Pressure : / mmHG Vent. Rate : 089 BPM Atrial Rate : 089 BPM P-R Int : 162 ms QRS Dur : 078 ms QT Int : 370 ms P-R-T Axes : 114 013 095 degrees QTc Int : 450 ms Normal sinus rhythm ST depression V1-V3 Abnormal ECG No significant change Confirmed by YEFRI ARANA ([id number]), mapping editor CLEMENT SUAZO ([id number]) on 11/02/2019 12:24:02 PM Referred By: Confirmed By:YEFRI ARANA
--- NOTE | 2019-11-02 13:43 | RAD ---
EXAM: XR Small Bowel STANDARD PROVIDED CLINICAL HISTORY: Evidence for obstruction COMPARISON: CT 11/01/2019 FINDINGS: Oral contrast material was instilled into the stomach via patient's enteric catheter. There is insuff icient progression of contrast material from the stomach into bowel for optimal assessment of small bowel caliber and progression of contrast material. Loops of dilated small bowel are noted within the left mid abdomen on the one-hour image. IMPRESSION: Insufficient progression of contrast material from the stomach for evaluation of small bowel.
[2019-11-02] MEDS: hydrALAZINE 20 MG/ML VIAL SLOW IVP PRN ×2 (15:42→19:56)
[2019-11-02] MEDS: Famotidine/PF 20 mg/2ml Vial SLOW IVP SCH (15:44)
[2019-11-02] MEDS: Famotidine 20 MG TAB PO SCH (17:26)
--- NOTE | 2019-11-02 18:54 | PRG ---
DATE OF SERVICE: 11/02/2019 SUBJECTIVE: Ms. Perez is an 84-year-old woman, who is postoperative day #11, status post exploratory laparotomy, right hemicolectomy. The patient was admitted yesterday with recurrent adynamic ileus. This was marked by an intolerance to oral intake and associated nausea and vomiting. CT scan of the abdomen and pelvis, which was obtained yesterday revealed distended loops of small bowel suspicious for adynamic ileus. Small bowel follow-through was performed today and there was significant delay in movement of the contrast out of the stomach. Notable is affected. There was no contrast beyond the proximal jejunum at almost 2 hours. IMPRESSION: 1. Postop day #11 status post laparotomy with a right hemicolectomy. 2. Adynamic ileus. PLAN: Continue bowel rest and nasogastric tube decompression. I am concerned also about the possibility of partial gastric obstruction from the now established diaphragmatic hernia. There is no acute surgical indication however for this patient at this time. I have discussed the above findings with the patient and her adult daughter at bedside. We will try to increase activity per Physical and Occupational therapy. Job ID: [id number]
[2019-11-02] MEDS: Enoxaparin Sodium 40 MG/0.4 ML SYRINGE SC SCH (19:56)
[2019-11-03] MEDS: hydrALAZINE 20 MG/ML VIAL SLOW IVP PRN ×3 (03:17→20:26)
[2019-11-03] MEDS: Sodium Chloride 0.9% 1,000 ML IV SCH ×3 (03:18→20:27)
--- NOTE | 2019-11-03 05:17 | PRG ---
DATE OF SERVICE: 11/03/2019 SUBJECTIVE: The patient is currently on the surgical floor. She is postop day 11 status post exploratory laparotomy and a right hemicolectomy. She had been discharged to rehab when she returned yesterday with nausea and vomiting. Today, she underwent a small bowel follow-through that showed no contrast beyond the proximal jejunum at almost 2 hours. She has NG-tube in place that is to intermittent wall suction. The nurses currently report no issues other than her blood pressure is elevated due to being unable to take her home medications. She is being treated with p.r.n. hydralazine which is controlling her blood pressure at this time. PHYSICAL EXAMINATION: VITAL SIGNS: Stable. The patient is afebrile. GENERAL: The patient is asleep at the time of my visit. She appeared in no distress. LUNGS: Her respirations are nonlabored. NG tube had just over 1 L in the canister. ASSESSMENT: 1. Postop day 11 status post laparotomy with right hemicolectomy. 2. Adynamic ileus with concern for partial gastric obstruction from a now established diaphragmatic hernia. PLAN: Plan will be to continue bowel rest, NG tube suction for decompression. I encouraged ambulation out of bed, and we will repeat a KUB in the morning to evaluate the flow of contrast. Job ID: [id number]
[2019-11-03] MEDS: HumaLOG 300 UNITS/3 ML VIAL SC PRN ×2 (06:33→18:02)
[2019-11-03] MEDS: Famotidine 20 MG TAB PO SCH (08:29)
[2019-11-03] MEDS: Famotidine/PF 20 mg/2ml Vial SLOW IVP SCH (08:29)
[2019-11-03] MEDS: Lisinopril/Hydrochlorothiazide 20/25 mg Tablet PO SCH (09:47)
--- NOTE | 2019-11-03 10:01 | RAD ---
Radiograph abdomen one view: DATE: 11/03/2019 Time: 9:00 AM HISTORY: 84-year-old female with small bowel obstruction. Follow-up small bowel series. COMPARISON: The 1 hour image of the small bowel series of 11/02/2019 FINDINGS: Esophagogastric tube remains in the left upper quadrant. The enteric contrast material is now very fa int and difficult to visualized. No dense contrast material is visualized, including the visualized portion of stomach. It is unknown whether the material has been aspirated or expelled from the bowel. Air-filled dilated small bowel loops. Nonspecific bowel gas pattern. IMPRESSION: Little or no enteric contrast material remaining.
[2019-11-03 12:08] LABS: Anion Gap 22 mmol/L (10-20); BUN (Urea Nitrogen) 20 mg/dL (9.8-20.1); Calc. Creatinine Clearance 19 mL/min (70-130); Calcium 9.7 mg/dL (7.8-10.44); Carbon Dioxide 19 mmol/L (23-31); Chloride 110 mmol/L (98-107); Estimated GFR-MDRD 47; Glucose 204 mg/dL (83-110); Magnesium 2.1 mg/dL (1.6-2.6); Phosphorus 2.4 mg/dL (2.3-4.7); Potassium 4.5 mmol/L (3.5-5.1); Sodium 146 mmol/L (136-145)
--- NOTE | 2019-11-03 12:25 | PRG ---
DATE OF SERVICE: 11/03/2019 SUBJECTIVE: Ms. Perez is an 84-year-old woman, who is postoperative day #12 status post exploratory laparotomy with right hemicolectomy. The patient was admitted with recurrent adynamic ileus. She is awake and alert today. She reports no abdominal pain. She reports no flatus or bowel movements since yesterday. Nasogastric tube remains in place and has returned 1550 bile-tinged effluent over the last 24 hours. Urinary output has been adequate for this patient's age and weight. OBJECTIVE: VITAL SIGNS: This morning includes blood pressure 177/87, pulse is 99, respiratory rate is 16, temperature is 98.3 degrees Fahrenheit, and oxygen saturation 97% on room air. HEENT: Pupils are equal, round, and reactive to light bilaterally. NECK: She has no jugular venous distention noted. HEART: Reveals regular rate and rhythm. LUNGS: Clear to auscultation bilaterally. ABDOMEN: Soft, nontender, and nondistended. NEUROLOGIC: Reveals no focal deficits present. IMPRESSION: 1. Postop day #12 status post exploratory laparotomy with right hemicolectomy and primary anastomosis. 2. Postoperative ileus, stable. PLAN: 1. Continue with nasogastric tube decompression and increase activity per Physical and Occupational Therapy. 2. We will place a PICC line today and anticipate starting TPN if bowel function fails to resolve within the next 24 hours. Job ID: [id number]
[2019-11-03] MEDS: Enoxaparin Sodium 30 MG/0.3 ML SYRINGE SC SCH (20:26)
[2019-11-04] MEDS: Acetaminophen 650 MG/20.3 ML UDCUP PO PRN (00:06)
[2019-11-04] MEDS: HumaLOG 300 UNITS/3 ML VIAL SC PRN ×2 (00:42→05:58)
--- NOTE | 2019-11-04 03:49 | PRG ---
DATE OF SERVICE: 11/04/2019 SUBJECTIVE: The patient remains on the surgical floor. She is postop day #12 status post exploratory laparotomy with right hemicolectomy. She was admitted for recurrent adynamic ileus. At the time of my visit, the patient had reported that she was passing gas and had one small bowel movement. She denied nausea and stated that her pain was controlled. PHYSICAL EXAMINATION: VITAL SIGNS: Stable. The patient is afebrile. GENERAL: The patient is resting comfortably in bed. She is awake, conversant, alert, appropriate. ABDOMEN: Soft, nontender with hypoactive bowel sounds. EXTREMITIES: Neurovascularly intact x4. ASSESSMENT: 1. Status post exploratory laparotomy with right hemicolectomy and primary anastomosis, postoperative day #13. 2. Postoperative ileus, improving. PLAN: Plan will be to continue NG tube at this time. Encourage physical and occupational therapy and reassess in the morning. If the patient remains with bowel function returning, we will start a clear liquid diet. Job ID: [id number]
[2019-11-04] MEDS: Sodium Chloride 0.9% 1,000 ML IV SCH ×2 (03:58→12:26)
[2019-11-04] MEDS: hydrALAZINE 20 MG/ML VIAL SLOW IVP PRN ×2 (04:02→16:56)
[2019-11-04] MEDS: Famotidine 20 MG TAB PO SCH (08:21)
[2019-11-04] MEDS: Lisinopril/Hydrochlorothiazide 20/25 mg Tablet PO SCH (08:21)
[2019-11-04] MEDS: Famotidine/PF 20 mg/2ml Vial SLOW IVP SCH (08:21)
--- NOTE | 2019-11-04 09:25 | RAD ---
XR Abdomen 1 View/KUB History: Small bowel obstruction. Comparison: Radiograph prior day Findings: Incomplete evaluation of the enteric tube appears similar in location to the comparison exa m with the tip likely in the gastric fundus with elevated left hemidiaphragm. Scoliotic changes thoracolumbar spine. No dilated air-filled loops of large or small bowel are apprec iated. Evaluation for free air is limited without an upright exam. Impression: Similar appearance of the abdomen. No dilated air-filled loops of large or small bowel.
[2019-11-04] MEDS ORDERED: Lactated Ringer's 1,000 ML IV SCH ×2 (13:15→22:30)
--- NOTE | 2019-11-04 14:03 | PRG ---
DATE OF SERVICE: 11/04/2019 This is Chris Herndon PA-C dictating a report for Stephen Rich MD. SUBJECTIVE: Ms. Perez is an 84-year-old female, postop day 14, status post exploratory laparotomy and right hemicolectomy. The patient is readmitted from rehabilitation facility due to recurrent adynamic ileus. The patient's NG tube is in place, NG tube put out 850 today. She had one bowel movement; however, her mobility is very poor. The patient is not walking, the most she can do is sit in the chair for 10 to 20 minutes. The patient's blood pressure is in the high end despite her hypertension home medication is already restarted since yesterday. This morning, the patient's daughter and the patient refused PICC line and TPN. The patient developed no fever or shortness of breath. OBJECTIVE: GENERAL: The patient is currently lying in bed, looks lethargic and tired. NG tube is working. VITAL SIGNS: Temperature is 97.4, heart rate 100, respiratory rate 16, O2 saturation 97 on room air, and blood pressure 186/85. LUNGS: Breath sound in the left is diminished. Breath sound on the right side; scattered rales, breath sound is present. ABDOMEN: Soft. Mildly distended. Bowel sounds are hypoactive. EXTREMITIES: Neurovascularly intact x4. NEUROLOGIC: No focal neurologic deficits. ASSESSMENT: 1. Status post exploratory laparotomy with right hemicolectomy, postoperative day 14. 2. Recurrent adynamic ileus. PLAN: Will be continue NG tube at the moment. Encourage working with Physical Therapy and Occupational Therapy. We will add hydralazine for hypertension. Continue IV fluid. The patient was seen and evaluated with Dr. Rich on round this morning. Job ID: [id number]
[2019-11-04] MEDS ORDERED: Pantoprazole 40 MG VIAL IVP SCH (14:30)
[2019-11-04 14:48] LABS: Hemoglobin 11.6 g/dL (12.0-16.0); Platelet Count 400 thou/uL (130-400)
[2019-11-04 15:10] LABS: Anion Gap 18 mmol/L (10-20); BUN (Urea Nitrogen) 16 mg/dL (9.8-20.1); Calc. Creatinine Clearance 41 mL/min (70-130); Calcium 9.5 mg/dL (7.8-10.44); Carbon Dioxide 23 mmol/L (23-31); Chloride 116 mmol/L (98-107); Estimated GFR-MDRD 45; Glucose 215 mg/dL (83-110); Magnesium 1.9 mg/dL (1.6-2.6); Phosphorus 2.5 mg/dL (2.3-4.7); Potassium 3.5 mmol/L (3.5-5.1); Sodium 153 mmol/L (136-145)
--- NOTE | 2019-11-04 16:05 | SPC ---
SPC CVP LINE PICC INITAL >5 History: Need for long-term IV access Comparison: None. Findings: Patient was brought to the specials suite. All questions were answered. Informed consent wa s obtained. Timeout performed. Patient's left arm was prepped and draped in normal sterile fashion. Using ultrasound guidance left b asilic vein was accessed. Over a wire and through a peel-away sheath a single lumen PICC was placed with tip at the inferior SVC. Patient tolerated the procedure well without complication. Impression: Technically successful fluoroscopic and ultrasound guided PICC placement. Fluoroscopy time: 0.5 minutes
[2019-11-04 18:01] LABS: INR-International Normal Ratio 1.3; PTT 27.5 SEC (22.9-36.1); Prothrombin Time 16.2 SEC (12.0-14.7)
[2019-11-04 18:23] LABS: ALT (SGPT) 18 U/L (8-55); AST (SGOT) 20 U/L (5-34); Albumin 3.4 g/dL (3.4-4.8); Alkaline Phosphatase 74 U/L (40-110); Anion Gap 19 mmol/L (10-20); BUN (Urea Nitrogen) 17 mg/dL (9.8-20.1); Bilirubin, Total 0.3 mg/dL (0.2-1.2); Calc. Creatinine Clearance 43 mL/min (70-130); Calcium 9.6 mg/dL (7.8-10.44); Carbon Dioxide 20 mmol/L (23-31); Cardiac Risk 2.3 (Less than 4.5); Chloride 116 mmol/L (98-107); Cholesterol 101 mg/dl (< 200 Desired); Estimated GFR-MDRD 49; Globulin 3.3 g/dL (2.4-3.5); Glucose 224 mg/dL (83-110); HDL Cholesterol 43 mg/dL (>60 Neg Risk); LDL Cholesterol, Calculated 44 mg/dL; Magnesium 1.9 mg/dL (1.6-2.6); Phosphorus 2.4 mg/dL (2.3-4.7); Potassium 3.2 mmol/L (3.5-5.1); Protein, Total 6.7 g/dL (6.0-8.3); Sodium 152 mmol/L (136-145); Triglycerides 68 mg/dL (Less than 150)
[2019-11-04] MEDS: hydrALAZINE 25 MG TAB PO SCH (21:04)
[2019-11-04] MEDS: Enoxaparin Sodium 30 MG/0.3 ML SYRINGE SC SCH (21:04)
[2019-11-04] MEDS ORDERED: Potassium Phosphate 15 MMOL in Sodium Chloride 0.9% 250 ML 250 ML IVPB SCH (21:30)
[2019-11-04] MEDS ORDERED: [UNRECOGNIZED DRUG - OTHER] IV SCH (22:00)
[2019-11-04] MEDS ORDERED: SODIUM ACETATE IV SCH (22:00)
[2019-11-04] MEDS ORDERED: POTASSIUM ACETATE IV SCH (22:00)
[2019-11-04] MEDS ORDERED: FAT EMULSION IV SCH (22:00)
[2019-11-05] MEDS: hydrALAZINE 20 MG/ML VIAL SLOW IVP PRN (00:06)
[2019-11-05] MEDS: HumaLOG 300 UNITS/3 ML VIAL SC PRN ×5 (00:14→23:12)
--- NOTE | 2019-11-05 00:14 | PRG ---
DATE OF SERVICE: 11/04/2019 SUBJECTIVE: The patient was seen this evening. She was sitting up in bed and she reported she was feeling well today. She was able to work with Physical Therapy and was able to sit up at the edge of the bed. She reports standing up with assistance of her daughter in the afternoon as well. She is still currently n.p.o. with NG tube to low intermittent wall suction. She is to receive TPN this evening. She will also receive additional electrolyte replacement of K-Phos. The patient denies nausea or vomiting. OBJECTIVE: VITAL SIGNS: Temperature 98.4, pulse 112, respirations 20, oxygen saturation 96% on room air, and blood pressure 168/79. GENERAL: Well-appearing elderly female, lying in bed with no signs of acute distress. PULMONARY: Equal chest rise and fall. No signs of acute respiratory distress. ABDOMEN: Soft, nontender, distended midline. Surgical incision is clean, dry, and intact with no signs of infection. ASSESSMENT: 1. Postop day 14, status post right hemicolectomy due to colon mass. 2. Ileus, resolving. 3. Acute hypernatremia, improving. 4. Acute hypokalemia and hypophosphatemia, worsening. 5. History of diaphragmatic hernia, CVA, deconditioning, chronic kidney disease, and hypertension. PLAN: Continue n.p.o. with NG tube to low intermittent wall suction. Continue to closely monitor NG tube output. We will start TPN in the meantime overnight. The patient has also received additional K-Phos electrolyte replacement this evening. We will closely monitor her I's and O's. The patient is hypernatremic due to aggressive IV fluid resuscitation with normal saline that has been discontinued, and LR as well as TPN has been ordered in its place. We will recheck labs tomorrow to include electrolytes. The patient is not working very aggressively with PT. I did discuss the importance of her moving around and ambulating. She reported to me that she will work on this. Job ID: [id number]
[2019-11-05 04:43] LABS: #Monocytes 1.1 thou/uL (0.11-0.59); #Neutrophils 9.8 thou/uL (1.40-6.50); %Basophils 0.1 % (0.0-1.0); %Eosinophils 0.3 % (0.0-10.0); %Lymphocytes 8.3 % (21.0-51.0); %Monocytes 9.6 % (0.0-10.0); %Neutrophils 81.8 % (42.0-75.0); Hemoglobin 10.5 g/dL (12.0-16.0); Mean Corpuscular HGB CONC 31.3 g/dL (32.0-36.0); Mean Corpuscular Hemoglobin 30.6 pg (27.0-31.0); Mean Platelet Volume 7.3 fL (7.4-10.4); Platelet Count 378 thou/uL (130-400); RBC Distribution Width 14.5 % (11.5-14.5); Red Blood Cell (RBC) Count 3.43 mill/uL (4.20-5.40)
[2019-11-05] MEDS: ALPRAZolam 0.5 MG TAB PO SCH ×3 (04:54→16:55)
[2019-11-05 05:19] LABS: Anion Gap 15 mmol/L (10-20); BUN (Urea Nitrogen) 16 mg/dL (9.8-20.1); Calc. Creatinine Clearance 45 mL/min (70-130); Calcium 9.2 mg/dL (7.8-10.44); Carbon Dioxide 24 mmol/L (23-31); Chloride 116 mmol/L (98-107); Estimated GFR-MDRD 51; Glucose 263 mg/dL (83-110); Magnesium 1.8 mg/dL (1.6-2.6); Phosphorus 3.1 mg/dL (2.3-4.7); Potassium 3.2 mmol/L (3.5-5.1); Sodium 152 mmol/L (136-145)
[2019-11-05] MEDS ORDERED: Pantoprazole 40 MG VIAL IVP SCH (09:00)
[2019-11-05] MEDS ORDERED: PHENYLEPHRINE-NS 100 MCG/ML 10 ML SYRINGE ONE (09:37)
[2019-11-05] MEDS ORDERED: PROPOFOL 200 MG/20 ML VIAL ONE (09:37)
[2019-11-05] MEDS ORDERED: Metoprolol Tartrate 5 MG/5 ML VIAL ONE ×2 (09:37→13:32)
[2019-11-05] MEDS ORDERED: Esmolol 100 MG/10 ML VIAL ONE (09:37)
[2019-11-05] MEDS: Lisinopril/Hydrochlorothiazide 20/25 mg Tablet PO SCH ×2 (09:47→09:48)
[2019-11-05] MEDS: hydrALAZINE 25 MG TAB PO SCH ×2 (09:48→19:38)
[2019-11-05 10:42] LABS: INR-International Normal Ratio 1.2; PTT 26.3 SEC (22.9-36.1); Prothrombin Time 15.6 SEC (12.0-14.7)
--- NOTE | 2019-11-05 11:14 | PDOC.GSPN ---
Surgery Progress Note: Subj - Subjective Narrative: Ms. Perez is an 84 F POD#14 following right hemicolectomy, admitted for recurrent adynamic ileus. Patient appears more altered today. She is not very responsive to questions and appears confused. Her daughter was present and notes that she has been like this throughout the morning. She is currently on TPN. NG tube is in place and put out 150 ml in 24 hours. Surgery Progress Note: Obj - Vital signs Vital signs: Vital Signs - Most Recent Temp Pulse Resp BP Pulse Ox 99.3 F 115 H 14 169/93 H 92 L 11/05/19 07:20 11/05/19 09:48 11/05/19 07:20 11/05/19 09:48 11/05/19 07:20 - Physical Exam General: no distress Abdomen: soft, non tender, distended (mild) Psychiatric: other (More confused, disoriented this AM. Arousable but not very responsive to questions.) Wound: healing well Surgery Progress Note: Results - Labs Result Diagrams: 11/05/19 04:25 11/05/19 04:25 Lab results: Laboratory Results - last 24 hr 11/05/19 11/05/19 11/05/19 00:15 04:25 04:25 WBC 12.0 H RBC 3.43 L Hgb 10.5 L Hct 33.6 L MCV 98.0 MCH 30.6 MCHC 31.3 L RDW 14.5 Plt Count 378 MPV 7.3 L Neutrophils % 81.8 H Lymphocytes % 8.3 L Monocytes % 9.6 Eosinophils % 0.3 Basophils % 0.1 Neutrophils # 9.8 H Lymphocytes # 1.0 L Monocytes # 1.1 H Eosinophils # 0.0 Basophils # 0.0 PT INR APTT Sodium 152 H Potassium 3.2 L Chloride 116 H Carbon Dioxide 24 Anion Gap 15 BUN 16 Creatinine 1.23 H Estimated GFR (MDRD) 51 Glucose 263 H POC Glucose 251 H Calcium 9.2 Phosphorus 3.1 Magnesium 1.8 Prealbumin Blood Type Antibody Screen 11/05/19 11/05/19 11/05/19 04:25 06:29 10:09 WBC RBC Hgb Hct MCV MCH MCHC RDW Plt Count MPV Neutrophils % Lymphocytes % Monocytes % Eosinophils % Basophils % Neutrophils # Lymphocytes # Monocytes # Eosinophils # Basophils # PT 15.6 H INR 1.2 APTT 26.3 Sodium Potassium Chloride Carbon Dioxide Anion Gap BUN Creatinine Estimated GFR (MDRD) Glucose POC Glucose 366 H Calcium Phosphorus Magnesium Prealbumin 12.0 L Blood Type Antibody Screen 11/05/19 10:09 WBC RBC Hgb Hct MCV MCH MCHC RDW Plt Count MPV Neutrophils % Lymphocytes % Monocytes % Eosinophils % Basophils % Neutrophils # Lymphocytes # Monocytes # Eosinophils # Basophils # PT INR APTT Sodium Potassium Chloride Carbon Dioxide Anion Gap BUN Creatinine Estimated GFR (MDRD) Glucose POC Glucose Calcium Phosphorus Magnesium Prealbumin Blood Type B POSITIVE Antibody Screen NEGATIVE Surgery Progress Note: A/P - Plan Plan: Ms. Perez is an 84 F POD#14 following right hemicolectomy, admitted for recurrent adynamic ileus. 1. There is concern regarding possible gastric outlet obstruction from a previously established diaphragmatic hernia. GI consulted to assess. 2. Patient appears more altered today. WBC 12 Tmax 99.3. Obtain blood and urine cultures. Continue to monitor mental status. 3. Potassium 3.2 today. Replace K-phos. Continue to monitor electrolytes. 4. Sodium 152 today. Na in TPN reduced. Continue to monitor hypernatremia. 5. Continue to encourage work with PT.
[2019-11-05 12:29] VITALS: BMI 27.8
--- NOTE | 2019-11-05 12:45 | CON ---
DATE OF CONSULTATION: REASON FOR CONSULT: Request for EGD to rule out gastric outlet obstruction. HISTORY OF PRESENT ILLNESS: Ms. Perez is a pleasant 84-year-old female who recently underwent upper and lower endoscopy on 10/01/2019 at the [facility] for iron deficiency anemia and hematochezia. She was found to have vascular ectasias in the duodenum and in the stomach, which were cauterized. Erosive antral gastritis, biopsies for H pylori, and severe diverticulosis throughout the colon with mass in the ascending colon across the ileocecal valve. 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 She is seen by Dr. Olguin and underwent resection on 10/22/2019. This was open surgery for multiple adhesions from previous surgery. She was discharged on to rehab. She was readmitted. She was actually having bowel movements, passing gas well, and that was on 10/27. Ultimately, she returned on 10/31 for increasing abdominal distention and vomiting. She had a CAT scan showed small bowel dilatation and gastric distention and NG tube was placed. She had quite a bit of decompression, but upper GI over the weekend showed poor progression of fluid out of the stomach. Her abdomen is much softer now, however. There was concern on the CAT scan that there was a large diaphragmatic hernia. Reviewing the x-rays, she also showed signs of the NG tube is coiled in the proximal stomach. There were some views on the upper GI, wisps of fluid passed down the lower part of the stomach and duodenum, but there revealed no progression of fluid and ultimately this was sucked out. Dr. Ruvalcaba called me this morning, asking me to see about performing EGD to make sure she does not have a component of a volvulus. Her EGD performed at the time of her colonoscopy that there was no mention of a large hernia although it is possibly, but was not appreciated due to its size. It seems to be able to be seen on the CAT scan, able to see the lateral elevation of the left hemidiaphragm. The proximal views of the hernia are not seen on the present CAT scans. PAST MEDICAL HISTORY: Diabetes, hypertension, hyperlipidemia, prior stroke, Sjogren syndrome. PAST SURGICAL HISTORY: Thyroidectomy, hysterectomy, previous small bowel resection for intra-abdominal obstruction in 2003, cardiac stent, iliac stent, right hemicolectomy. MEDICATIONS: At home: 1. Glipizide. 2. Alprazolam. 3. Aricept. 4. Robaxin. 5. Sertraline. 6. Verapamil. 7. Levemir. 8. Hydroxychloroquine. Medications here: 1. P.r.n. Xanax. 2. Lipitor 20 p.o. q.h.s. 3. Aricept 5 mg p.o. q.h.s. 4. Lovenox 30 subcutaneous daily. 5. TPN. 6. Apresoline. 7. Humalog p.r.n. 8. Isosorbide 60 daily. 9. LR 40 an hour. 10. Lisinopril. 11. Hydrochlorothiazide. 12. Zofran. 13. Protonix 40 scheduled p.o. daily given orally, although it is unclear she has been taking the sertraline or Verapamil. ALLERGIES: CODEINE, HYDROCODONE, AND TRAMADOL. SOCIAL HISTORY: The patient lives with her daughter and is at the bedside today. She does not smoke, drink, or use drugs at this time. REVIEW OF SYSTEMS: Unable to be obtained. She does not talk much related to prior stroke. PHYSICAL EXAMINATION: GENERAL: She is resting in bed. She has tried to give her some medicines orally, but she would not take them. She seems to be in no overt distress, but still has not been eating. The nurses note that she has had no bowel movements, although her daughter notes that she was having bowel movements at rehab. VITAL SIGNS: Temperature is 99, pulse 115, respirations 14, blood pressure 169/93. LUNGS: Notable for some rhonchi, coarse in the upper airway sounds. No rales in the bases. There is movement bilaterally. HEART: Sinus tachycardia. ABDOMEN: Soft and nondistended at this time. The incision feels well. EXTREMITIES: No clubbing, cyanosis, or edema. LABORATORY DATA: White count is 12, hemoglobin is 10.5, platelet count is 378. INR is 1.3 on 11/03. Sodium 152, potassium 3.2, BUN and creatinine are 16 and 1.23. On admission, calcium 9.8, magnesium 1.9, bilirubin 0.3, AST and ALT 20 and 18, alkaline phosphatase 78, albumin 3.4, potassium is 6.3, prealbumin was 13. Lipase is 165. ASSESSMENT: 1. Recent resection for advanced right colon polyp, that cannot remove endoscopically. 2. Prior history of bowel obstructions. 3. Prior history of stroke. 4. Now readmitted with signs of ileus versus obstruction. The CT did show dilated stomach and proximal small bowel with transition to normal small bowel distally. Small bowel follow-through could not be completed with contrast not leaving the stomach. There was some concern about a large hiatal hernia. This was not reported on her previous esophagogastroduodenoscopy, but one wonders about the appearance of the upper GI indicating possibly a paraesophageal hernia or even volvulus situation. It goes against this would be that she did have gas and some distention of proximal small bowel. She may just have an acute gastric distention. 5. Hypernatremia, which probably is not helping motility issues at this point in time. RECOMMENDATIONS: 1. We will proceed with EGD today as per request from General Surgery helps to determine whether she needs surgery or some other intervention versus observation and medical management. 2. We would recommend adjusting her TPN to decrease sodium, increase free water. 3. We will plan for EGD earlier today. I have discussed risks, benefits, possible complication with the patient's daughter at the bedside. We will proceed today. Job ID: [id number]
[2019-11-05] MEDS ORDERED: Ondansetron HCl/PF 4 MG/2 ML Vial IVP PRN (13:36)
--- NOTE | 2019-11-05 13:59 | RAD ---
Exam: Chest one view HISTORY:Tachypnea Comparison: 11/01/2019 FINDINGS: Lines and tubes: Nasogastric tube is presumed to be in the left hemithorax, likely gastric in locatio n. Left upper extremity PICC line appears to terminate in the superior vena cava Cardiac silhouette:Enlarged cardiac silhouette. Aorta: Unremarkable Pulmonary vessels: Normal Costophrenic angles: Bibasilar, left greater than right pleural effusions. LUNGS: Diminished lung volumes. Bibasilar opacities likely represent atelectasis, aspiration or pneum onia. Stable rightward deviation of the trachea. Pneumothorax: None Osseous abnormalities: None IMPRESSION: 1. Nasogastric tube and endotracheal tube as described above. There is a large left-sided hernia with the gastric contents extending through the defect. 2. Lines and tubes as above. 3. Pleural and parenchymal changes in the lung bases. Continued surveillance 4. Rightward deviation the trachea. Better interrogation with chest CT is recommended Results study conveyed via [employer] connect 11/05/2019 at 1:55 PM code CR
[2019-11-05] MEDS ORDERED: MD-Gastroview 120 ML BOT ONE (14:43)
[2019-11-05] MEDS: Dextrose 5% in Water 1,000 ML IV SCH ×2 (15:35→19:37)
[2019-11-05] MEDS ORDERED: Morphine 2 MG/ML SYRINGE SLOW IVP PRN (15:38)
[2019-11-05] MEDS ORDERED: Metoprolol Tartrate 5 MG/5 ML VIAL IVP PRN (15:40)
--- NOTE | 2019-11-05 16:43 | RAD ---
"PRELIMINARY REPORT" Exam: MR angiography of the [place], MR venogram HISTORY: Acute left frontal intracranial hemorrhage. COMPARISON: None TECHNIQUE: Axial 3-D [id number] imaging and coronal 2-D [id number] imaging was performed to a ssess for the intracranial arteries as well as the venous system FINDINGS: Axial 3-D, flight images are markedly limited due to motion degradation. Grossly no significant absen t flow related signal with regards to the [place], proximal A2 and M2 segments. There does appear to be decreased flow related signal in bilateral cavernous segments which may be artifactual. Grossly no significant stenosis involving the posterior circulation. No evidence of a vascular lesion in the region of parenchymal hemorrhage (left frontal lobe). The deg ree of mass effect and edema limits evaluation. MR venogram: There is appropriate signal intensity of the sagittal sinus, internal cerebral veins, st raight sinus, vein of Fausto, bilateral transverse sinuses, sigmoid sinuses. 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 IMPRESSION: 1. Markedly limited MR angiography of the [place]. Grossly no abnormality. 2. Grossly unremarkable MR venogram.
[2019-11-05] MEDS: FAT EMULSION IV SCH (17:00)
[2019-11-05] MEDS: POTASSIUM ACETATE IV SCH (17:00)
[2019-11-05] MEDS: [UNRECOGNIZED DRUG - OTHER] IV SCH (17:00)
[2019-11-05] MEDS: POTASSIUM PHOSPHATE IV SCH (17:00)
[2019-11-05] MEDS ORDERED: Metoprolol Tartrate 5 MG/5 ML VIAL IVP SCH (19:10)
[2019-11-05] MEDS: Enoxaparin Sodium 30 MG/0.3 ML SYRINGE SC SCH (19:38)
[2019-11-05] MEDS: Atorvastatin Calcium 20 MG TAB PO SCH (19:39)
[2019-11-05] MEDS: Donepezil HCl 5 MG TAB PO SCH (19:39)
[2019-11-05] MEDS ORDERED: Labetalol HCl 100 MG/20 ML VIAL SLOW IVP SCH (20:30)
[2019-11-05] MEDS: Acetaminophen 650 MG/20.3 ML UDCUP PO PRN (20:44)
[2019-11-05] MEDS ORDERED: Labetalol HCl 100 MG/20 ML VIAL SLOW IVP PRN (23:09)
--- NOTE | 2019-11-06 03:05 | PRG ---
DATE OF SERVICE: 11/05/2019 SUBJECTIVE: Patient was seen this evening during rounds. She had received a small-bowel follow-through as well as an EGD. The patient recently had a large bowel movement. EGD demonstrated that she had a gastric outlet obstruction due to a gastric volvulus, which was corrected by GI. Small-bowel follow-through demonstrated no small-bowel obstruction and she had a large bowel movement. I spent a lot of time talking to the patient's daughter answering several questions including addressing the plan for hypertension overnight. OBJECTIVE: VITAL SIGNS: Temperature 98.5, pulse 89, respirations 18, oxygen saturation 94% on room air, and blood pressure 166/86. GENERAL: Well-appearing elderly female, lying in bed, asleep, but no signs of acute distress. PULMONARY: Equal chest rise and fall. No signs of acute respiratory distress. ABDOMEN: Soft, nontender, nondistended. NG tube in place with dark output in canister. ASSESSMENT: 1. Ileus, resolving. 2. Gastric outlet obstruction due to gastric volvulus, resolved. 3. Hypernatremia, stable. 4. History of hypertension, diaphragmatic hernia, CVA, deconditioning, and chronic kidney disease. PLAN: Continue current n.p.o. with NG tube to suction. Continue TPN. Continue D5W at 40 an hour for hypernatremia. Continue home medications. She will receive p.r.n. labetalol 20 mg q.4 hours for systolic blood pressure greater than 170. We will further adjust her antihypertensive medications in the morning. She is to continue to work aggressively with physical and occupational therapy and sit up in the bed as much as possible. Dr. Ruvalcaba will re-evaluate need for NG tube and diet advancement tomorrow. Job ID: [id number]
[2019-11-06 06:04] LABS: Hemoglobin 11.3 g/dL (12.0-16.0); Mean Corpuscular HGB CONC 32.6 g/dL (32.0-36.0); Mean Corpuscular Hemoglobin 32.4 pg (27.0-31.0); Mean Corpuscular Volume 99.2 fL (78.0-98.0); Mean Platelet Volume 8.7 fL (7.4-10.4); Platelet Count 351 thou/uL (130-400); RBC Distribution Width 14.8 % (11.5-14.5); White Blood Cell (WBC) Count 12.6 thou/uL (4.8-10.8)
[2019-11-06 06:10] LABS: Hypochromia SLIGHT = 6-15 cells (100X) (0-5/hpf); Lymphocytes 9 % (21-51); MDiff Complete? YES; Monocytes 2 % (0-10); Neutrophil 89 % (42-75); Platelet Morphology Comment Appears Adequate
[2019-11-06 06:14] LABS: Anion Gap 14 mmol/L (10-20); BUN (Urea Nitrogen) 20 mg/dL (9.8-20.1); Calc. Creatinine Clearance 46 mL/min (70-130); Calcium 9.3 mg/dL (7.8-10.44); Carbon Dioxide 24 mmol/L (23-31); Chloride 115 mmol/L (98-107); Estimated GFR-MDRD 52; Glucose 525 mg/dL (83-110); Magnesium 1.9 mg/dL (1.6-2.6); Phosphorus 3.2 mg/dL (2.3-4.7); Potassium 3.6 mmol/L (3.5-5.1); Sodium 149 mmol/L (136-145)
[2019-11-06] MEDS: HumaLOG 300 UNITS/3 ML VIAL SC PRN ×4 (06:20→20:49)
--- NOTE | 2019-11-06 07:24 | OP ---
DATE OF PROCEDURE: 11/05/2019 PROCEDURE PERFORMED: Esophagogastroduodenoscopy. PREOPERATIVE DIAGNOSES: 1. Recent episode of partial small-bowel obstruction. Reviewed films of Radiology. This is either obstruction or ileus, but there is definite transition zone in the distal small bowel. 2. On upper GI and CT, there was concern that there was possible large amount of retained content in the stomach. Reviewing the films from Radiology, there was some progression of contrast from the stomach and the bowel ruling out complete gastric outlet obstruction. 3. Atypical appearance of the stomach on CT was concerning for large hiatal hernia reviewed with Radiology. They felt this was eventration of the diaphragm, but not a true hernia. They did not think there was a volvulus on admission CAT scan as the duodenum and pylorus were below the GE junction in their correct anatomical location in the right upper quadrant. ANESTHESIA: TIVA. POSTOPERATIVE DIAGNOSES: 1. Normal esophagus. 2. Stomach is notable for anatomy that looks like a paraesophageal hernia with volvulus. The GE junction is at 40 cm from incisor orifice. There was a quite bit of J shape to the stomach and when retroflexion was performed, it looks like most of the stomach is back above the GE junction. Again this is eventration of the diaphragm that may be why it looks that way and then to get to the pylorus was very tortuous and more than just J-shaped stomach and that it almost seemed if there was a twisted mucosa there. Ultimately, we were able to get to the duodenal bulb and second and third portions a couple of times and after we did that, these took about 10 to 15 minutes each time, but after we did that the last time, the pylorus was very easily visible and easily entered leading me to believe that we reduced the volvulus or at least a partial volvulus. 3. NG tube was left in place and we will get an upper GI study. If she does well, hopefully this can be removed. It may be that she developed an obstruction with distention of the stomach and developed some type of volvulus anatomy. ANESTHESIA: TIVA. PROCEDURE IN DETAIL: After the patient was informed of the risks, benefits, and possible complications of endoscopy including perforation, bleeding, reaction to medication, and aspiration, informed consent was obtained. The patient was brought to the endoscopy suite, where she was sedated in gradual fashion. Once she was comfortable, NG tube was removed. The endoscope was advanced through the esophagus. The GE junction noted at 40 cm from incisor orifice. No overt strictures, ulcers, or erosions. The stomach was entered and was immediately had a retroflexed view of the rest of the stomach. This appeared to be a severe J-shaped stomach or a paraesophageal hernia. When we got to advance towards the area of the antrum, the lumen was obliterated and we had to move hard right and then down into the duodenal bulb, which we were only be able to do after about 20 minutes and then changing to a stiffer more rigid therapeutic scope as the diagnostic scope was looping excessively. In doing this, we pulled back and we were going to leave a guidewire in place, but this fell out and then again it was difficult. We desufflated the entire stomach and started over again. It was very difficult again to reach the pylorus and I did only see the pylorus or the antrum very well with the tip in the duodenum. We made attempt to detorse the stomach with counterclockwise rotation of the scope and then other times with clockwise rotation. About the third time we tried this, the stomach did seem to revert to a more normal anatomical position and we could view the pyloric channel straight on from the antrum without difficulty. At this point in time, Dr. Ruvalcaba was in the room and we discussed the concern for possible partial volvulus or a hernia here, although Radiology was pretty adamant that there was no overt hernia seen on the CT scan. The scope was then removed. The stomach was desufflated. NG tube was replaced and the patient was brought to recovery room in stable condition. Job ID: [id number]
[2019-11-06] MEDS ORDERED: Potassium Phosphate 30 MMOL in Sodium Chloride 0.9% 500 ML IVPB SCH (07:45)
--- NOTE | 2019-11-06 07:54 | RAD ---
SMALL BOWEL FOLLOW THROUGH: 11/05/19 HISTORY: Small bowel obstruction. Exam went to two hours. The patient has undergone a right hemicolectomy by history. Small bowel loops are mildly distended. O n the two hour film there is contrast seen to the rectum. IMPRESSION: Mild distention of some of the mid abdominal small bowel loops. It appears that some of the more dist al loops are nondilated. Contrast is definitively within the colon by two hours. POS: JODI
[2019-11-06] MEDS: Lactated Ringer's 1,000 ML IV SCH (08:28)
[2019-11-06] MEDS: ALPRAZolam 0.5 MG TAB PO SCH ×3 (08:29→16:57)
[2019-11-06] MEDS: hydrALAZINE 25 MG TAB PO SCH ×2 (08:29→16:53)
[2019-11-06] MEDS: Lisinopril/Hydrochlorothiazide 20/25 mg Tablet PO SCH (08:30)
[2019-11-06] MEDS: Insulin Glargine 20 UNITS in Pre-Filled Syringe 1 EACH SC SCH (09:37)
[2019-11-06] MEDS: Acetaminophen 650 MG/20.3 ML UDCUP PO PRN (09:37)
[2019-11-06] MEDS: FAT EMULSION IV SCH (14:19)
[2019-11-06] MEDS: POTASSIUM ACETATE IV SCH (14:19)
[2019-11-06] MEDS: POTASSIUM PHOSPHATE IV SCH (14:19)
[2019-11-06] MEDS: [UNRECOGNIZED DRUG - OTHER] IV SCH (14:19)
--- NOTE | 2019-11-06 16:01 | PRG ---
DATE OF SERVICE: 11/06/2019 SUBJECTIVE: Ms. Perez has no abdominal pain. She had a small mushy stool this morning and one last night as well. She had her NG tube taken out today and is tolerating that well, however, she has been given ice chips and water and she is holding this in her mouth rather than swallowing normally. Speech Pathology evaluated her and recommended keeping her on just tight chips for now. OBJECTIVE: VITAL SIGNS: Temperature 98.0, pulse 95, and blood pressure 125/76. GENERAL: She is in no acute distress. Awake and alert. LUNGS: Clear to auscultation bilaterally. HEART: Regular rate and rhythm without murmur. ABDOMEN: Soft, nontender, and nondistended. Bowel sounds are present. EXTREMITIES: No lower extremity edema. LABORATORY DATA: White blood cell count 12.6, hemoglobin 11.3, and platelets 351. Creatinine 1.21. IMPRESSION: 1. 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 2. Question of gastric volvulus, status post EGD yesterday. She had her NG tube removed yesterday. We are waiting her to be able to advance her diet, however, she was not swallowing normally this morning. She will be re-evaluated by Speech Pathology tomorrow. RECOMMENDATIONS: 1. Her diet will be advanced per Speech Pathology's recommendations and General Surgery's recommendations. 2. I will sign off for now. Please call if GI can be of assistance. Job ID: [id number]
--- NOTE | 2019-11-06 19:49 | PRG ---
DATE OF SERVICE: 11/06/2019 HISTORY: Ms. Perez is an 84-year-old woman, postoperative day #15 status post exploratory laparotomy, right hemicolectomy. The patient has developed acute small bowel obstruction, which is being managed nonoperatively with nasogastric tube decompression. She underwent EGD yesterday with decompression of the gastric volvulus. This morning, she is awake and alert. She is having normal bowel and urinary function. Small bowel follow-through, which was obtained yesterday, revealed no small bowel obstruction as the contrast was seen in the rectum within 2 hours. Overnight, the NG tube has returned approximately 500 mL of bilious effluent, although the tip of the NG tube is in 2nd portion of the duodenum. OBJECTIVE: VITAL SIGNS: Include blood pressure 125/76, pulse 95, respiratory rate is 16, temperature 98 degrees Fahrenheit, and oxygen saturation 95% on room air. HEART: Reveals regular rate and rhythm. LUNGS: Clear to auscultation bilaterally. Breathing, regular and nonlabored. ABDOMEN: Soft, nontender, nondistended. Nasogastric tube was removed. The patient will be commenced on clear liquid diet. Anticipate that this current TPN bag will be the last. We will advance diet as tolerated. We increased insulin to treat acute hyperglycemia, which has been exacerbated by the TPN. Job ID: [id number]
[2019-11-06] MEDS: Enoxaparin Sodium 40 MG/0.4 ML SYRINGE SC SCH (20:51)
[2019-11-06] MEDS: HumaLOG 300 UNITS/3 ML VIAL SC SCH (20:51)
[2019-11-06] MEDS ORDERED: Insulin Glargine 20 UNITS in Pre-Filled Syringe 1 EACH SC SCH (21:00)
[2019-11-06 21:22] LABS: Phosphorus 5.5 mg/dL (2.3-4.7)
[2019-11-06 21:23] LABS: BUN (Urea Nitrogen) 29 mg/dL (9.8-20.1); Calc. Creatinine Clearance 37 mL/min (70-130); Calcium 9.5 mg/dL (7.8-10.44); Carbon Dioxide 26 mmol/L (23-31); Estimated GFR-MDRD 41; Glucose 395 mg/dL (83-110); Magnesium 2.1 mg/dL (1.6-2.6)
[2019-11-06 21:31] LABS: Anion Gap 15 mmol/L (10-20); Chloride 114 mmol/L (98-107); Potassium 3.3 mmol/L (3.5-5.1); Sodium 151 mmol/L (136-145)
[2019-11-07] MEDS: HumaLOG 300 UNITS/3 ML VIAL SC PRN ×4 (00:57→18:07)
[2019-11-07] MEDS: Atorvastatin Calcium 20 MG TAB PO SCH ×2 (01:58→20:41)
[2019-11-07] MEDS: Donepezil HCl 5 MG TAB PO SCH ×2 (01:59→20:40)
[2019-11-07] MEDS: hydrALAZINE 25 MG TAB PO SCH ×4 (01:59→20:40)
[2019-11-07] MEDS ORDERED: Potassium Chloride 40 MEQ in Premix Bag 1 BAG IVPB SCH (02:30)
--- NOTE | 2019-11-07 05:32 | PRG ---
DATE OF SERVICE: 11/07/2019 SUBJECTIVE: Patient was seen this evening during rounds. She was resting comfortably and asleep with no signs of acute distress. Nursing reported no acute events overnight. Patient, later in the afternoon, had some significant hyperglycemia that seems to be resolving. Also, she is no longer tachycardic. OBJECTIVE: VITAL SIGNS: Temperature 98.7, pulse 97, respirations 16, oxygen saturation 96% on room air, and blood pressure 138/73. GENERAL: Well-appearing elderly female, sitting up in bed, asleep with no signs of acute distress. PULMONARY: Equal chest rise and fall. No signs of acute respiratory distress. ASSESSMENT: 1. Ileus, resolving. 2. Gastric outlet obstruction secondary to gastric volvulus, status post esophagogastroduodenoscopy. 3. Hypernatremia, resolving. 4. Acute hypokalemia. 5. Hyperglycemia, improving. 6. History of hypertension. 7. Diaphragmatic hernia. 8. CVA. 9. Deconditioning. 10. Chronic kidney disease. PLAN: Continue current TPN and LR at 40 an hour. Continue current diet. Continue working aggressively with physical and occupational therapy. She will receive potassium replacement earlier this morning. Continue aggressive glucose management. Job ID: [id number]
[2019-11-07] MEDS: ALPRAZolam 0.5 MG TAB PO SCH ×2 (08:57→12:30)
[2019-11-07] MEDS: HumaLOG 300 UNITS/3 ML VIAL SC SCH ×3 (09:02→20:41)
[2019-11-07] MEDS: Lactated Ringer's 1,000 ML IV SCH ×2 (09:07→18:01)
[2019-11-07] MEDS: Insulin Glargine 20 UNITS in Pre-Filled Syringe 1 EACH SC SCH (09:27)
[2019-11-07] MEDS: Saccharomyces boulardii 250 MG CAP PO SCH (09:27)
[2019-11-07 13:57] LABS: Hemoglobin A1c 7.1 % (4.0-6.0)
[2019-11-07 14:08] LABS: Band 18 % (5-11); Eosinophils 2 % (0-10); Hemoglobin 10.5 g/dL (12.0-16.0); Lymphocytes 8 % (21-51); MDiff Complete? YES; Mean Corpuscular HGB CONC 32.2 g/dL (32.0-36.0); Mean Corpuscular Hemoglobin 31.4 pg (27.0-31.0); Mean Corpuscular Volume 97.4 fL (78.0-98.0); Mean Platelet Volume 7.7 fL (7.4-10.4); Monocytes 9 % (0-10); Neutrophil 61 % (42-75); Platelet Count 273 thou/uL (130-400); Platelet Morphology Comment Appears Adequate; RBC Distribution Width 14.4 % (11.5-14.5); Reactive Lymphocytes 2 % (0-10); Red Blood Cell (RBC) Count 3.36 mill/uL (4.20-5.40); Target Cells SLIGHT = 2-5 cells (100X) (0-1/hpf); Tear Drops SLIGHT = 2-5 cells (100X) (0-1/hpf); White Blood Cell (WBC) Count 12.2 thou/uL (4.8-10.8)
[2019-11-07 14:14] LABS: Anion Gap 10 mmol/L (10-20); BUN (Urea Nitrogen) 26 mg/dL (9.8-20.1); Calc. Creatinine Clearance 42 mL/min (70-130); Calcium 9.2 mg/dL (7.8-10.44); Carbon Dioxide 29 mmol/L (23-31); Chloride 116 mmol/L (98-107); Estimated GFR-MDRD 47; Glucose 309 mg/dL (83-110); Magnesium 1.9 mg/dL (1.6-2.6); Phosphorus 3.3 mg/dL (2.3-4.7); Potassium 4.1 mmol/L (3.5-5.1); Sodium 151 mmol/L (136-145)
[2019-11-07] MEDS: Enoxaparin Sodium 40 MG/0.4 ML SYRINGE SC SCH (20:40)
[2019-11-07] MEDS: Acetaminophen 650 MG/20.3 ML UDCUP PO PRN (20:48)
[2019-11-07] MEDS: ALPRAZolam 0.5 MG TAB PO PRN (20:48)
[2019-11-07] MEDS: POTASSIUM ACETATE IV SCH (21:28)
[2019-11-07] MEDS: FAT EMULSION IV SCH (21:28)
[2019-11-07] MEDS: POTASSIUM PHOSPHATE IV SCH (21:28)
[2019-11-07] MEDS: [UNRECOGNIZED DRUG - OTHER] IV SCH (21:28)
[2019-11-08] MEDS: HumaLOG 300 UNITS/3 ML VIAL SC PRN ×4 (00:06→21:50)
--- NOTE | 2019-11-08 01:20 | PRG ---
DATE OF SERVICE: 11/07/2019 SUBJECTIVE: The patient was seen this evening during rounds. She was awake and alert. She did appear to have some secretions in the back of her throat that she was not able to clear. I did suction her mouth and was able to clear a lot of it, but there was still some that she was not able to cough up. She has been having difficulty swallowing and is working with Speech Language pathology. She did have low blood glucose this evening that was due to TPN, being discontinued inappropriately, and the patient continued to receive aggressive hyperglycemia control with insulin that has since been resolved. OBJECTIVE: VITAL SIGNS: Temperature 97.9, pulse 93, respirations 16, oxygen saturation 98% on room air, and blood pressure 143/83. GENERAL: Well-appearing elderly female, sitting up in bed with no signs of acute distress. PULMONARY: Equal chest rise and fall. Clear breath sounds bilaterally. There is an upper respiratory type rattle that it was not able to clear. ASSESSMENT: 1. Ileus. 2. Gastric outlet obstruction secondary to gastric volvulus. 3. Acute hypernatremia, stable. 4. Urinary tract infection, uncomplicated, Escherichia coli. 5. History of hypertension. 6. Hiatal hernia. 7. Cerebrovascular accident. 8. Deconditioning. 9. Chronic kidney disease. Continue n.p.o. as the patient continues to work with Speech Language pathology. Continue TPN and LR at 40 an hour. Continue all p.o. medications. Respiratory to do NT suctioning and provide the patient with Acapella as she has difficulty coordinating the incentive spirometer. We will start to consider possible Dobhoff placement versus PEG tube if the patient's swallowing does not improve over the next couple of days. Job ID: [id number]
[2019-11-08] MEDS: Labetalol HCl 100 MG/20 ML VIAL SLOW IVP PRN ×2 (04:01→13:27)
[2019-11-08 05:40] LABS: #Eosinphils 0.2 thou/uL (0.0-0.7); #Lymphocytes 1.8 thou/uL (1.20-3.40); #Monocytes 0.7 thou/uL (0.11-0.59); #Neutrophils 6.8 thou/uL (1.40-6.50); %Basophils 0.2 % (0.0-1.0); %Eosinophils 2.2 % (0.0-10.0); %Lymphocytes 19.1 % (21.0-51.0); %Monocytes 7.6 % (0.0-10.0); %Neutrophils 70.9 % (42.0-75.0); Hemoglobin 10.3 g/dL (12.0-16.0); Mean Corpuscular HGB CONC 32.1 g/dL (32.0-36.0); Mean Corpuscular Hemoglobin 31.5 pg (27.0-31.0); Mean Corpuscular Volume 97.9 fL (78.0-98.0); Platelet Count 269 thou/uL (130-400); RBC Distribution Width 14.5 % (11.5-14.5); Red Blood Cell (RBC) Count 3.28 mill/uL (4.20-5.40); White Blood Cell (WBC) Count 9.6 thou/uL (4.8-10.8)
[2019-11-08 05:57] LABS: Anion Gap 14 mmol/L (10-20); BUN (Urea Nitrogen) 22 mg/dL (9.8-20.1); Calc. Creatinine Clearance 46 mL/min (70-130); Carbon Dioxide 23 mmol/L (23-31); Chloride 114 mmol/L (98-107); Estimated GFR-MDRD 52; Glucose 274 mg/dL (83-110); Magnesium 1.8 mg/dL (1.6-2.6); Phosphorus 3.5 mg/dL (2.3-4.7); Potassium 3.6 mmol/L (3.5-5.1); Sodium 147 mmol/L (136-145)
--- NOTE | 2019-11-08 08:18 | PRG ---
DATE OF SERVICE: 11/07/2019 SUBJECTIVE: Sonali Merrill is an 84-year-old female patient seen for Dr. Olguin. The patient is status post 11/05/[address] Jurado, he noted paraesophageal hernia with some distortion. The patient after that procedure, had a small bowel x-ray, small-bowel follow-through. Contrast was seen in the rectum within 2 hours and traversed the stomach. She is status post day #16 after right colectomy for a TVA. She is on TPN. NG tube has been removed. She has tolerated that. Speech evaluation is pending. OBJECTIVE: LUNGS: Clear to auscultation. CARDIAC: Regular rate and rhythm without murmur or gallop. ABDOMEN: Soft, non-tympanitic, nondistended. ASSESSMENT AND PLAN: 1. Malnutrition. Continue TPN. 2. Await speech evaluation for swallowing. Advance diet as tolerated. Job ID: [id number]
[2019-11-08] MEDS: HumaLOG 300 UNITS/3 ML VIAL SC SCH ×2 (10:01→15:41)
[2019-11-08] MEDS: Lisinopril/Hydrochlorothiazide 20/25 mg Tablet PO SCH (10:02)
[2019-11-08] MEDS: Insulin Glargine 20 UNITS in Pre-Filled Syringe 1 EACH SC SCH (10:02)
[2019-11-08] MEDS: Saccharomyces boulardii 250 MG CAP PO SCH (10:03)
[2019-11-08] MEDS: hydrALAZINE 25 MG TAB PO SCH ×3 (10:03→20:49)
[2019-11-08] MEDS ORDERED: Potassium Phosphate 30 MMOL in Sodium Chloride 0.9% 500 ML IVPB SCH (12:30)
[2019-11-08] MEDS ORDERED: Magnesium 2 GM/50 ML 2 GM in Premix Bag 1 BAG IVPB SCH (12:45)
[2019-11-08] MEDS ORDERED: Potassium Phosphate 30 MMOL in Sodium Chloride 0.9% 250 ML 250 ML IVPB SCH (12:45)
--- NOTE | 2019-11-08 12:55 | PRG ---
DATE OF SERVICE: 11/07/2019 SUBJECTIVE: The patient remains on the surgical floor. The patient is awake, alert, in no distress. The patient is more alert and talkative today. The patient voices no complaints or concerns. The patient has had some difficulty swallowing and Speech Therapy has been following the patient. We did feed the patient some jello and the patient was able to swallow, it just took her some time. OBJECTIVE: VITAL SIGNS: Temperature 98.4, pulse 91, respirations 14, SpO2 of 99% on room air, blood pressure 170/99. GENERAL: Elderly female, awake, alert, in no distress. RESPIRATORY: Equal chest rise and fall, breath sounds clear. ABDOMEN: Soft, nontender, nondistended. EXTREMITIES: Moves all extremities, no focal deficits. LABORATORY DATA: WBC 9.6, RBC 3.28, hemoglobin 10.3, hematocrit 32.1, platelets 269. Sodium 147, potassium 3.6, chloride 114, BUN 22, creatinine 1.21, estimated GFR 52, glucose 274, calcium 9.0, phosphorus 3.5, magnesium 1.8, prealbumin 14. DIAGNOSTICS: There are no new diagnostics to review today. ASSESSMENT: 1. Ileus. 2. Gastric outlet obstruction secondary to gastric volvulus. 3. Acute hypernatremia, stable. 4. Urinary tract infection, uncomplicated; history of hypertension; hiatal hernia; CVA; deconditioning; chronic kidney disease. PLAN: We will discontinue TPN once bag is complete later tonight. Speech Therapy plans to do a modified barium swallow study. We will continue to monitor and ensure that the patient is getting proper nutrition. Staff and family are to assist with feeding the patient as she has been able to safely swallow, but just needs time to swallow. We will discontinue the patient's IV fluids. We will continue having RT do Acapella with the patient as she has had some difficulty coordinating the incentive spirometer. As of right now, the patient does not need a PEG tube or Dobbhoff placement, but we will continue to monitor and follow up on the patient's swallow study. We will have Case Management work on placement to inpatient rehab. The plan was discussed with the patient and family, who agree. Job ID: [id number]
--- NOTE | 2019-11-08 14:46 | RAD ---
MODIFIED BARIUM SWALLOW IN PRESENCE OF SPEECH PATHOLOGIST: Date: 11/08/2019 HISTORY: Dysphagia, unspecified. Feeding difficulty. EXPOSURE: 2.1 minutes, 1.289 mGy*cm^2. FINDINGS: In the presence of a speech pathologist, the patient was administered thin liquid, nectar-thick, pudd ing, and mechanical soft/solid consistencies. There is penetration and aspiration with thin liquid consistency. There is delay in triggering the sw allowing mechanism with all of the aforementioned consistencies. There is pooling of the vallecula wi th many of the consistencies, most evident with the solid consistency. IMPRESSION: Please refer to speech pathologist's report for feeding recommendations. POS: OFF
[2019-11-08] MEDS: Donepezil HCl 5 MG TAB PO SCH (20:49)
[2019-11-08] MEDS: ALPRAZolam 0.5 MG TAB PO PRN (20:50)
[2019-11-08] MEDS: Enoxaparin Sodium 40 MG/0.4 ML SYRINGE SC SCH (20:50)
[2019-11-08] MEDS: Acetaminophen 650 MG/20.3 ML UDCUP PO PRN (20:51)
[2019-11-08] MEDS: Atorvastatin Calcium 20 MG TAB PO SCH (20:51)
[2019-11-08] MEDS: POTASSIUM PHOSPHATE IV SCH (21:49)
[2019-11-08] MEDS: FAT EMULSION IV SCH (21:49)
[2019-11-08] MEDS: POTASSIUM ACETATE IV SCH (21:49)
[2019-11-08] MEDS: [UNRECOGNIZED DRUG - OTHER] IV SCH (21:49)
[2019-11-09] MEDS: HumaLOG 300 UNITS/3 ML VIAL SC PRN ×5 (00:34→21:17)
--- NOTE | 2019-11-09 01:31 | PRG ---
DATE OF SERVICE: 11/08/2019 SUBJECTIVE: Patient was seen this evening, sitting up in bed with no signs of acute distress. She was much more alert and talkative today. She did pass a modified barium swallow today and she has a modified diet ordered. TPN to stop tonight. OBJECTIVE: VITAL SIGNS: Temperature 98.5, pulse 80, respirations 16, oxygen saturation 98% on room air, and blood pressure 155/81. GENERAL: Well-appearing elderly female, lying in bed with no signs of acute distress. PULMONARY: Equal chest rise and fall. No signs of acute respiratory distress. ASSESSMENT: 1. Status post right hemicolectomy due to mass. 2. Ileus, resolving. 3. Gastric outlet obstruction due to gastric volvulus, resolved. 4. Hypernatremia, resolving. 5. Urinary tract infection, uncomplicated. 6. History of hypertension, diaphragmatic hernia, cerebrovascular accident, deconditioning, and chronic kidney disease. PLAN: Continue current diabetic diet with modifications. TPN is to discontinue tonight. We will closely monitor the patient's p.o. intake. Continue all home medications. We decrease the amount of long-acting insulin the patient receives but continue still an aggressive sliding scale. We will closely monitor her blood sugars now that the TPN has been stopped. Continue aggressive physical therapy and we will try to increase her p.o. intake over the days. She is pending placement at a rehab facility. Job ID: [id number]
[2019-11-09 07:17] LABS: Anion Gap 13 mmol/L (10-20); BUN (Urea Nitrogen) 21 mg/dL (9.8-20.1); Calc. Creatinine Clearance 47 mL/min (70-130); Calcium 9.1 mg/dL (7.8-10.44); Carbon Dioxide 28 mmol/L (23-31); Chloride 109 mmol/L (98-107); Estimated GFR-MDRD 54; Glucose 149 mg/dL (83-110); Magnesium 2.1 mg/dL (1.6-2.6); Phosphorus 4.1 mg/dL (2.3-4.7); Sodium 146 mmol/L (136-145)
[2019-11-09 07:52] LABS: Band 3 % (5-11); Eosinophils 4 % (0-10); Hemoglobin 10.5 g/dL (12.0-16.0); Lymphocytes 19 % (21-51); MDiff Complete? YES; Mean Corpuscular HGB CONC 32.6 g/dL (32.0-36.0); Mean Corpuscular Hemoglobin 31.8 pg (27.0-31.0); Mean Corpuscular Volume 97.5 fL (78.0-98.0); Mean Platelet Volume 8.4 fL (7.4-10.4); Monocytes 8 % (0-10); Neutrophil 66 % (42-75); Platelet Count 251 thou/uL (130-400); RBC Distribution Width 14.5 % (11.5-14.5); Red Blood Cell (RBC) Count 3.29 mill/uL (4.20-5.40); White Blood Cell (WBC) Count 8.2 thou/uL (4.8-10.8)
[2019-11-09] MEDS: Saccharomyces boulardii 250 MG CAP PO SCH (09:07)
[2019-11-09] MEDS: hydrALAZINE 25 MG TAB PO SCH ×3 (09:07→21:16)
[2019-11-09] MEDS: Lisinopril/Hydrochlorothiazide 20/25 mg Tablet PO SCH (09:07)
[2019-11-09] MEDS: Insulin Glargine 20 UNITS in Pre-Filled Syringe 1 EACH SC SCH (09:08)
[2019-11-09] MEDS: Acetaminophen 650 MG/20.3 ML UDCUP PO PRN ×2 (10:22→21:16)
--- NOTE | 2019-11-09 13:04 | PRG ---
DATE OF SERVICE: 11/09/2019 SUBJECTIVE: The patient remains on the surgical floor. The patient is awake and alert, in no distress. The patient's daughter and nurse currently at bedside assisting the patient with her crush medications. The patient is able to swallow, but it does take the patient a while to swallow her crush medications in applesauce. The patient had no overnight events. Daughter states she seems to be doing better. The patient's TPN was discontinued yesterday evening. The patient's blood sugars have improved since being off the TPN. OBJECTIVE: VITAL SIGNS: Temperature 98.3, pulse 81, respirations 14, SpO2 of 97% on room air, and blood pressure 137/77. GENERAL: Elderly female, awake, alert, in no distress. RESPIRATORY: Equal chest rise and fall, bilateral breath sounds clear. ABDOMEN: Soft, nondistended, and nontender. EXTREMITIES: Moves all extremities. No focal deficits. LABORATORY DATA: WBC 8.2, RBC 3.29, hemoglobin 10.5, hematocrit 32.1, platelets 251. Sodium 146, potassium 4.0, BUN 21, creatinine 1.17, estimated GFR 54, glucose 137, calcium 9.1, phosphorus 4.1, magnesium 2.1, and prealbumin 16. DIAGNOSTICS: Modified barium swallow on 11/08/2019, there was penetration and aspiration with thin liquid consistency. There was delay in triggering of the swallowing mechanism with all consistencies. ASSESSMENT: 1. Ileus, resolved. 2. Gastric outlet obstruction secondary to gastric volvulus. 3. Acute hypernatremia, stable. 4. Urinary tract infection, uncomplicated. 5. History of hypertension, hiatal hernia, cerebrovascular accident, deconditioning, and chronic kidney disease. PLAN: Increase oral intake per speech recommendations. We will have Speech to continue to follow the patient daily. We will add Glucerna to the patient's diet three times a day as the patient needs more protein in her diet. Continue to have staff and family assist with feeding patient. Medications are to be crushed and placed in applesauce or pudding. The patient is pending placement to inpatient rehab. The plan was discussed with the patient and family who agree. The patient was examined by Dr. Ruvalcaba this morning during rounds. Job ID: [id number] [facility]
[2019-11-09] MEDS: Enoxaparin Sodium 40 MG/0.4 ML SYRINGE SC SCH (21:16)
[2019-11-09] MEDS: ALPRAZolam 0.5 MG TAB PO PRN (21:16)
[2019-11-09] MEDS: Donepezil HCl 5 MG TAB PO SCH (21:16)
[2019-11-09] MEDS: Atorvastatin Calcium 20 MG TAB PO SCH (21:16)
--- NOTE | 2019-11-09 23:12 | PRG ---
DATE OF SERVICE: SUBJECTIVE: The patient was seen this evening during rounds. She was sitting up in bed, awake and alert with no signs of acute distress. She reported that she was able to eat today and work with Physical Therapy. She even got out of the bed. OBJECTIVE: VITAL SIGNS: Temperature 98.2, pulse 85, respirations 16, oxygen saturation 96% on room air, and blood pressure 144/76. GENERAL: Well-appearing elderly female, sitting up in bed with no signs of acute distress. PULMONARY: Equal chest rise and fall. No signs of acute respiratory distress. ASSESSMENT: 1. Status post right hemicolectomy due to mass by Dr. Olguin. 2. Postoperative ileus. 3. Gastric outlet obstruction due to gastric volvulus, resolved. 4. Hypernatremia, improving. 5. Urinary tract infection, uncomplicated, Escherichia coli. 6. History of hypertension, diaphragmatic hernia, cerebrovascular accident, deconditioning, and chronic kidney disease. PLAN: Continue current diet with modifications. Continue Glucerna. Continue physical and occupational therapy as well as therapy with Speech Language Pathology. Job ID: [id number]
[2019-11-10 06:26] LABS: Anion Gap 12 mmol/L (10-20); BUN (Urea Nitrogen) 17 mg/dL (9.8-20.1); Calc. Creatinine Clearance 43 mL/min (70-130); Calcium 8.9 mg/dL (7.8-10.44); Carbon Dioxide 30 mmol/L (23-31); Chloride 107 mmol/L (98-107); Estimated GFR-MDRD 49; Glucose 134 mg/dL (83-110); Magnesium 1.9 mg/dL (1.6-2.6); Phosphorus 3.5 mg/dL (2.3-4.7); Potassium 3.9 mmol/L (3.5-5.1); Sodium 145 mmol/L (136-145)
[2019-11-10] MEDS ORDERED: Magnesium 2 GM/50 ML 2 GM in Premix Bag 1 BAG IVPB SCH (08:15)
[2019-11-10] MEDS: hydrALAZINE 25 MG TAB PO SCH ×3 (09:18→21:46)
[2019-11-10] MEDS: Saccharomyces boulardii 250 MG CAP PO SCH (09:18)
[2019-11-10] MEDS: Insulin Glargine 20 UNITS in Pre-Filled Syringe 1 EACH SC SCH (09:19)
[2019-11-10] MEDS: Lisinopril/Hydrochlorothiazide 20/25 mg Tablet PO SCH (09:20)
--- NOTE | 2019-11-10 13:33 | CT ---
CT head noncontrast HISTORY: Left-sided weakness. Altered mental status. COMPARISON: 06/19/2018. FINDINGS: There is no evidence of acute intracranial hemorrhage or infarct. Diffuse prominence of the ventricular system is similar in appearance to the previous exam. No focal mass effect. Septum pellucidum is midline. Chronic ischemic small vessel disease throughout each cerebral hemisphere are similar in appearance to the prior study. Oval area of fluid density at the anterior floor of the right middle cranial fossa is stable and may represent an arachnoid cyst. Mucous retention cyst is apparent within the partially visualized right maxillary sinus. IMPRESSION: Chronic-type findings are stable. Diffuse ventriculomegaly could reflect normal pressure hydrocephalus. Clinical correlation regarding other signs and symptoms of normal pressure hydrocephalus is required. No acute intracranial abnormalities are demonstrated.
--- NOTE | 2019-11-10 18:19 | PRG ---
DATE OF SERVICE: 11/10/2019 SUBJECTIVE: The patient remains on the surgical floor. The patient is resting comfortably in no distress. The patient arouses easily to voice. The patient had no overnight events. The patient is tolerating her diabetic diet and doing better with her swallowing according to her daughter. The patient did work with Physical Therapy today and daughter felt like she had some weakness more so on the left side. OBJECTIVE: VITAL SIGNS: Pulse 83, blood pressure 114/55, respirations 16, SpO2 of 97% on room air, temperature 97.6. GENERAL: Elderly female, resting comfortably in hospital bed, in no acute distress. RESPIRATORY: Equal chest rise and fall, bilateral breath sounds clear. ABDOMEN: Soft, nontender, nondistended. EXTREMITIES: Moves all extremities. No focal deficits. LABORATORY DATA: Sodium 145, potassium 3.9, chloride 107, carbon dioxide 30, anion gap 12, BUN 17, creatinine 1.27, estimated GFR 49, glucose 134, calcium 8.9, phosphorus 3.9, magnesium 1.9. DIAGNOSTIC DATA: Brain CT without contrast, impression, chronic type findings are stable. Diffuse prominence of the ventricular system is similar in appearance to previous exam. No focal mass effect. Chronic ischemic small-vessel disease throughout. Similar in appearance to prior study. No acute intracranial abnormalities are identified. ASSESSMENT: 1. Ileus, resolved. 2. Gastric outlet obstruction secondary to gastric volvulus, resolved. 3. Hypernatremia, resolved. 4. Urinary tract infection, uncomplicated. 5. History of hypertension, hiatal hernia, cerebrovascular accident, deconditioning, and chronic kidney disease. PLAN: Continue diet recommendations per Speech and increase oral intake. Speech will follow daily and work with the patient on her swallowing. Continue Glucerna as the patient needs more protein. Continue to have patient work with Physical Therapy and up in the chair as much as possible. The patient is ready for discharge and should be able to go to inpatient rehab tomorrow. The plan was discussed with the patient's daughter who agrees. Job ID: [id number]
[2019-11-10] MEDS: HumaLOG 300 UNITS/3 ML VIAL SC PRN (18:20)
[2019-11-10] MEDS ORDERED: Lisinopril/Hydrochlorothiazide 20/25 mg Tablet PO SCH (18:30)
[2019-11-10] MEDS: Donepezil HCl 5 MG TAB PO SCH (21:46)
[2019-11-10] MEDS: Enoxaparin Sodium 40 MG/0.4 ML SYRINGE SC SCH (21:46)
[2019-11-10] MEDS: Atorvastatin Calcium 20 MG TAB PO SCH (21:46)
[2019-11-10] MEDS: ALPRAZolam 0.5 MG TAB PO PRN (21:48)
--- NOTE | 2019-11-11 01:18 | PRG ---
DATE OF SERVICE: 11/10/2019 SUBJECTIVE: The patient was seen this evening. She was sitting up in bed with no signs of acute distress. She reported pain is well controlled. Nursing reported no acute events. She is tolerating her diet and working with Physical Therapy. OBJECTIVE: VITAL SIGNS: The patient is afebrile, hemodynamically stable. GENERAL: Well-appearing elderly female, sitting up in bed with no signs of acute distress. ASSESSMENT: 1. Ileus, status post right hemicolectomy due to mass. 2. Gastric outlet obstruction due to gastric volvulus. 3. Acute hypernatremia, resolved. 4. Urinary tract infection, uncomplicated. 5. History of hypertension, diaphragmatic hernia, cerebrovascular accident, deconditioning, and chronic kidney disease. PLAN: Continue current diet and pain regimen. Continue physical and occupational therapy. The patient is ready for discharge at this time. Job ID: [id number]
[2019-11-11 06:11] LABS: Band 3 % (5-11); Eosinophils 3 % (0-10); Lymphocytes 24 % (21-51); MDiff Complete? YES; Mean Corpuscular HGB CONC 32.6 g/dL (32.0-36.0); Mean Corpuscular Hemoglobin 31.3 pg (27.0-31.0); Mean Platelet Volume 8.5 fL (7.4-10.4); Monocytes 11 % (0-10); Neutrophil 59 % (42-75); Platelet Count 214 thou/uL (130-400); RBC Distribution Width 14.2 % (11.5-14.5); Red Blood Cell (RBC) Count 3.18 mill/uL (4.20-5.40); White Blood Cell (WBC) Count 7.7 thou/uL (4.8-10.8)
[2019-11-11 06:20] LABS: Anion Gap 9 mmol/L (10-20); BUN (Urea Nitrogen) 17 mg/dL (9.8-20.1); Calc. Creatinine Clearance 43 mL/min (70-130); Calcium 8.5 mg/dL (7.8-10.44); Carbon Dioxide 31 mmol/L (23-31); Chloride 106 mmol/L (98-107); Estimated GFR-MDRD 49; Glucose 126 mg/dL (83-110); Phosphorus 3.3 mg/dL (2.3-4.7); Potassium 3.3 mmol/L (3.5-5.1); Sodium 143 mmol/L (136-145)
[2019-11-11] MEDS ORDERED: Potassium Phosphate 30 MMOL in Sodium Chloride 0.9% 500 ML IVPB SCH (08:00)
[2019-11-11] MEDS ORDERED: Potassium Phosphate 30 MMOL in Sodium Chloride 0.9% 250 ML 250 ML IVPB SCH (08:15)
[2019-11-11] MEDS: Saccharomyces boulardii 250 MG CAP PO SCH (08:55)
[2019-11-11] MEDS: hydrALAZINE 25 MG TAB PO SCH ×2 (08:56→15:24)
[2019-11-11] MEDS ORDERED: Lisinopril/Hydrochlorothiazide 20/25 mg Tablet PO SCH (09:00)
[2019-11-11] MEDS: Insulin Glargine 20 UNITS in Pre-Filled Syringe 1 EACH SC SCH (11:10)
[2019-11-11] MEDS: HumaLOG 300 UNITS/3 ML VIAL SC PRN (11:54)
[2019-11-11] MEDS: Acetaminophen 650 MG/20.3 ML UDCUP PO PRN (11:54)
[2019-11-11 16:19] VITALS: BP 115/66; TEMP 97.9
--- NOTE | 2019-11-13 10:12 | PQF ---
MUSHTAQ YUAN VINAYA KUMAR MD [id number] SURG B- 3322 [id number] CLINICAL DOCUMENTATION CLARIFICATION FORM: POST DISCHARGE Addendum to original discharge summary date: ____ Late entry note date: __ DATE:11/13/2019 ATTN: DAMEON MONTALVO MD Please exercise your independent, professional judgment in responding to the clarification form. Clinical indicators are provided on the bottom of this form for your review Please check appropriate box(s): [ x] Postoperative ileus is a complication of Hemicolectomy [ ] Postoperative ileus is not a complication of Hemicolectomy [ ] Other diagnosis [ ] Unable to determine CLINICAL INDICATORS - SIGNS / SYMPTOMS / LABS - Postoperative ileus, stable- Progress note, 11/02, Edilberto Ruvalcaba - Recurrent ileus-H&P, 10/31, Sharif Toussaint MD - Increasing abdominal distention-H&P, 10/31, Sharif Toussaint MD - Her stomach was very large and it appears that she has a chronic diaphragmatic hernia made apparent by this large stomach-H&P, 10/31, Sharif Toussaint MD RISK FACTORS - Status post open right hemicolectomy on 10/21- H&P, 10/31, Sharif Toussaint MD TREATMENT: - NG tube- H&P, 10/31, Sharif Toussaint MD - IV fluids-H&P, 10/31, Sharif Toussaint MD (This form is maintained as a part of the permanent medical record) 2014 [employer]. All Rights Reserved Meng [email or web address]
--- NOTE | 2019-11-13 10:28 | PQF ---
MUSHTAQ YUAN VINAYA KUMAR MD [id number] [facility] B- 3322 [id number] CLINICAL DOCUMENTATION CLARIFICATION FORM: POST DISCHARGE Addendum to original discharge summary date: ____ Late entry note date: __ Date: 11/13/2019 ATTN: DAMEON MONTALVO MD Please exercise your independent, professional judgment in responding to the clarification form. Clinical indicators are provided on the bottom of this form for your review Please check appropriate box(s): [ x ] Protein Calorie Malnutrition: [x ] Mild [ ] Moderate [ ] Severe [ ] Unspecified Protein Calorie Malnutrition [ ] Other diagnosis [ ] Unable to determine CLINICAL INDICATORS - SIGNS / SYMPTOMS / LABS -Malnutrition- Progress note, 11/06, Juan Mitchell MD -Potassium: 3.3L-Laboratory report, 11/10 - BMI: 27.8- FNS assessment -Gastric outlet obstruction sec to gastric volvulus-Progress note, 11/09, Robert Miller RISK FACTORS -Postoperative ileus- Progress note, 11/08, Ivy HERNANDEZ -UTI-Escherichia coli-Progress note, 11/08, Ivy HERNANDEZ TREATMENT: -TPN- Progress note, 11/06, Juan Mitchell MD Moderate Malnutrition (in acute illness) Energy Intake: <75% of estimated energy requirement for > 7 days Weight Loss: 1-2%/1 week; 5%/ 1 month; 7.5%/3 months Other: mild body fat loss; mild muscle mass loss; mild fluid accumulation; Severe Malnutrition (in acute illness) Energy Intake: < 50% of estimated energy requirement for > 5 days Weight Loss: >1-2%/1 week; >5%/1 month; >7.5%/3 months Other: moderate body fat loss; moderate muscle mass loss; moderate- severe fluid accumulation; measurably reduced visual lead strength Moderate Malnutrition (in chronic illness) Energy Intake: <75% of estimated energy requirement for >1 month Weight Loss: 5%/1 month; 7.5%/3 months; 10%/6 months; 20%/1 year Other: mild body fat loss; mild muscle mass loss; mild fluid accumulation Severe Malnutrition (in chronic illness) Energy Intake: <75% of estimated energy requirement for >1 month Weight Loss: >5%/1 month; >7.5%/3 months; >10%/6 months; >20%/1 year Other: severe body fat loss; severe muscle mass loss; severe fluid accumulation ; measurably reduced visual lead strength (This form is maintained as a part of the permanent medical record) 2014 [employer]. All Rights Reserved Meng MTDD
--- NOTE | 2019-11-25 07:48 | PQF ---
MUSHTAQ YUAN VINCENT U [id number] SURG B- 3322 [id number] CLINICAL DOCUMENTATION CLARIFICATION FORM: POST DISCHARGE Addendum to original discharge summary date: ____ Late entry note date: __ DATE: 11/25/2019 ATTN: ADRIANA QUINONES Please exercise your independent, professional judgment in responding to the clarification form. Clinical indicators are provided on the bottom of this form for your review Please check appropriate box(s): [ ] Postoperative ileus is a complication of Hemicolectomy [ X] Postoperative ileus is not a complication of Hemicolectomy [ ] Other diagnosis [ ] Unable to determine CLINICAL INDICATORS - SIGNS / SYMPTOMS / LABS - Postoperative ileus stable -Progress note, 11/02, Jordon Casanova MD - Recurrent ileus- H&P, 10/31, Sharif Toussaint MD - Increasing abdominal distention- H&P, 10/31, Sharif Toussaint MD - Her stomach was very large and it appears that she has a chronic diaphragmatic hernia made apparent by this large stomach- H&P, 10/31, Sharif Toussaint MD RISK FACTORS - Status post open right hemicolectomy on 10/21- H&P, 10/31, Sharif Toussaint MD TREATMENT: - NG tube - H&P, 10/31, Sharif Toussaint MD - IV fluids- H&P, 10/31, Sharif Toussaint MD (This form is maintained as a part of the permanent medical record) 2014 [employer]. All Rights Reserved [email or web address]
--- NOTE | 2019-11-25 08:00 | PQF ---
MUSHTAQ YUAN VINCENT U [id number] [facility] B- 3322 [id number] CLINICAL DOCUMENTATION CLARIFICATION FORM: POST DISCHARGE Addendum to original discharge summary date: ____ Late entry note date: __ Date: 11/25/2019 ATTN: ADRIANA QUINONES Please exercise your independent, professional judgment in responding to the clarification form. Clinical indicators are provided on the bottom of this form for your review Please check appropriate box(s): [ ] Protein Calorie Malnutrition: [ ] Mild [ x] Moderate [ ] Severe [ ] Other diagnosis [ ] Unable to determine CLINICAL INDICATORS - SIGNS / SYMPTOMS / LABS - Malnutrition- Progress note , 11/06, Juan Mitchell MD - Potassium : 3.3L- Laboratory report, 11/10 - BMI:27.8- FNS assessment - Gastric outlet obstruction sec to gastric volvulus- Progress note, 11/09, Robert Miller RISK FACTORS - Postoperative ileus- Progress note, 11/08, Oswaldo HERNANDEZ - UTI- Escherichia coli- Progress note, 11/08, Oswaldo HENRANDEZ TREATMENT: - TPN- Progress note, 11/06, Juan Mitchell MD Moderate Malnutrition (in acute illness) Energy Intake: <75% of estimated energy requirement for > 7 days Weight Loss: 1-2%/1 week; 5%/ 1 month; 7.5%/3 months Other: mild body fat loss; mild muscle mass loss; mild fluid accumulation; Severe Malnutrition (in acute illness) Energy Intake: < 50% of estimated energy requirement for > 5 days Weight Loss: >1-2%/1 week; >5%/1 month; >7.5%/3 months Other: moderate body fat loss; moderate muscle mass loss; moderate- severe fluid accumulation; measurably reduced watermaster strength Moderate Malnutrition (in chronic illness) Energy Intake: <75% of estimated energy requirement for >1 month Weight Loss: 5%/1 month; 7.5%/3 months; 10%/6 months; 20%/1 year Other: mild body fat loss; mild muscle mass loss; mild fluid accumulation Severe Malnutrition (in chronic illness) Energy Intake: <75% of estimated energy requirement for >1 month Weight Loss: >5%/1 month; >7.5%/3 months; >10%/6 months; >20%/1 year [employer] Win[employer] ViewerOther: severe body fat loss ; severe muscle mass loss; severe fluid accumulation; measurably reduced watermaster strength (This form is maintained as a part of the permanent medical record) 2014 [employer] All Rights Reserved Meng [email or web address]
== END 2019-11-11 16:45 | DRG 389 ==
LOC: ERS 03:41 → ERHOLD 06:07 → SURG B 11:39 → OBSVTOIN 11-03 08:55
PROVIDERS: ADMIT Surgery; ATTEND Surgery
PROC: 02HV33Z Insertion of Infusion Device into Superior Vena Cava, Percutaneous Approach (ICD-10-PCS; principal; 2019-11-04)
PROC: B548ZZA Ultrasonography of Superior Vena Cava, Guidance (ICD-10-PCS; 2019-11-04)
PROC: B5181ZA Fluoroscopy of Superior Vena Cava using Low Osmolar Contrast, Guidance (ICD-10-PCS; 2019-11-04)
PROC: 3E0436Z Introduction of Nutritional Substance into Central Vein, Percutaneous Approach (ICD-10-PCS; 2019-11-04)
PROC: 0DJ08ZZ Inspection of Upper Intestinal Tract, Via Natural or Artificial Opening Endoscopic (ICD-10-PCS; 2019-11-05)
DX: K56.0 Paralytic ileus (principal); E87.0 Hyperosmolality and hypernatremia; N39.0 Urinary tract infection, site not specified; E44.1 Mild protein-calorie malnutrition; D50.9 Iron deficiency anemia, unspecified; R53.81 Other malaise; E86.0 Dehydration; E11.22 Type 2 diabetes mellitus with diabetic chronic kidney disease; E78.5 Hyperlipidemia, unspecified; M35.00 Sjogren syndrome, unspecified; F41.9 Anxiety disorder, unspecified; K44.9 Diaphragmatic hernia without obstruction or gangrene; M48.00 Spinal stenosis, site unspecified; H40.9 Unspecified glaucoma; E87.6 Hypokalemia; E83.39 Other disorders of phosphorus metabolism; Z96.641 Presence of right artificial hip joint; K63.5 Polyp of colon; B96.20 Unspecified Escherichia coli [E. coli] as the cause of diseases classified elsewhere; K31.89 Other diseases of stomach and duodenum; F17.210 Nicotine dependence, cigarettes, uncomplicated; N18.9 Chronic kidney disease, unspecified; Z90.710 Acquired absence of both cervix and uterus; Z90.49 Acquired absence of other specified parts of digestive tract; Z95.5 Presence of coronary angioplasty implant and graft; Z88.6 Allergy status to analgesic agent; Z88.2 Allergy status to sulfonamides; Z88.8 Allergy status to other drugs, medicaments and biological substances; Z86.73 Personal history of transient ischemic attack (TIA), and cerebral infarction without residual deficits; Z68.27 Body mass index [BMI] 27.0-27.9, adult
CPT/HCPCS: 36415; 36416; 36569; 70450; 71045; 74018; 74177; 74230; 74250; 80048; 80061; 82010; 83036; 83690; 83735; 84100; 84134; 84484; 85007; 85014; 85018; 85025; 85027; 85049; 85610; 85730; 86850; 86900; 86901; 87040; 87077; 87086; 87186; 93005; 93010; 96361; 96374; C1751; C9113; J0360; J1644; J1650; J1815; J1956; J2270; J2405; J2704; J3475; J3480; J7050; Q9963; Q9967; S0028